=== PATIENT | female | born 1955 | race African-American/Black ===

== ENCOUNTER 2018-03-03 14:29 | Inpatient (IN) ==
--- NOTE | 2018-03-03 14:44 | Emergency Department Note ---
Disposition Clinical Impression: Cellulitis of foot, right Disposition: Admitted As Inpatient Condition: Undetermined Extremity Problem HPI - General Chief complaint: ED Extremity Problem,Nontraumatic Stated complaint: spider bite on toe Time Seen by Provider: 03/03/18 14:35 - History of Present Illness Pain Scale: 10 - Related Data Home Medications Medication Instructions Recorded Confirmed Albuterol Sulfate [Ventolin Hfa] 2 puff IH Q4H PRN 07/22/17 03/03/18 Amlodipine Besylate 10 mg PO DAILY 07/22/17 03/03/18 Aspirin 81 mg PO DAILY 07/22/17 03/03/18 Clopidogrel [Plavix] 75 mg PO DAILY 07/22/17 03/03/18 Gabapentin [Neurontin] 300 mg PO TID 07/22/17 03/03/18 Insulin ASPART [Novolog Flexpen] 5 - 10 unit SQ TID 07/22/17 03/03/18 Insulin Glargine,Hum.rec.anlog 45 unit SQ HS 07/22/17 03/03/18 [Lantus Solostar] Lisinopril [Zestril] 40 mg PO DAILY 07/22/17 03/03/18 Metformin HCl [Glucophage] 1,000 mg PO BID 07/22/17 03/03/18 Metoprolol [Lopressor] 100 mg PO BID 07/22/17 03/03/18 Omeprazole [PriLOSEC] 20 mg TD DAILY 07/22/17 03/03/18 PARoxetine HCl [Paroxetine HCl] 40 mg PO DAILY 07/22/17 03/03/18 Rosuvastatin [Crestor] 20 mg PO HS 07/22/17 03/03/18 Previous Rx's Medication Instructions Recorded Ibuprofen [Motrin] 600 mg PO Q8HR #20 tab 07/22/17 Allergies Allergy/AdvReac Type Severity Reaction Status Date / Time codeine AdvReac Nausea Verified 07/22/17 09:36 Sulfa (Sulfonamide AdvReac Rash Verified 07/22/17 09:36 Antibiotics) Past Medical History - Past Medical History Medical history: Reports: asthma, CHF, diabetes, myocardial infarction, TIA Surgical history: Reports: cataract, hysterectomy Psychiatric history: Reports: no psych history - Social History Smoking Status: Never smoker Smokeless Tobacco Status: No Alcohol use: Reports: none Drug use: Reports: none Course Vital Signs Temperature 97.9 F 03/03/18 14:32 Pulse Rate 70 03/03/18 14:32 Respiratory Rate 18 03/03/18 14:32 Blood Pressure 150/82 03/03/18 14:32 O2 Sat by Pulse Oximetry 100 03/03/18 14:32 Temperature 97.9 F 03/03/18 19:15 Pulse Rate 73 03/03/18 19:15 Respiratory Rate 15 03/03/18 19:15 Blood Pressure 187/83 03/03/18 19:15 O2 Sat by Pulse Oximetry 97 03/03/18 19:15 Oxygen Delivery Oxygen Delivery Room Air Extremity Problem, Nontraumati - Lab Data Result diagrams: 03/03/18 15:43 03/03/18 15:43 Lab Results 03/03/18 03/03/18 03/03/18 Range/Units 15:43 15:43 15:43 WBC 8.0 (4.3-11.1) K/mcL RBC 4.32 (3.82-4.97) M/mcL Hgb 13.4 (11.5-15.4) g/dL Hct 40.4 (35.3-44.9) % MCV 93.5 (83.0-100.0) fL MCH 31.0 (28.0-33.3) pg MCHC 33.2 (31.6-35.5) g/dL RDW 13.4 (11.5-14.5) % Plt Count 314 (140-400) K/mcL MPV 10.2 (9.4-12.4) fL Immature Gran % 0.4 (0-4) % Seg Neutrophils % 61.7 % Lymphocytes % 27.4 % Monocytes % 8.5 % Eosinophils % 1.4 % Basophils % 0.6 % Neutrophils # 4.9 (1.6-8.9) K/mcL Lymphocytes # 2.2 (0.6-4.6) K/mcL Monocytes # 0.7 (0.0-1.3) K/mcL Eosinophils # 0.1 (0.0-0.6) K/mcL Basophils # 0.1 (0.0-0.2) K/mcL ESR 29 H (0-15) mm/hr Sodium 138 (136-145) mEq/L Potassium 3.3 L (3.5-5.1) mEq/L Chloride 102 (98-107) mEq/L Carbon Dioxide 32 H (23-29) mEq/L BUN 5 L (8-23) mg/dL Creatinine 0.44 L (0.60-1.20) mg/dL Est GFR ( Amer) > 60 (> 60) Est GFR (Non-Af Amer) > 60 (> 60) BUN/Creatinine Ratio 11 (6-26) Glucose 191 H (70-105) mg/dL Calculated Osmolality 288 (280-300) Calcium 9.0 (8.6-10.3) mg/dL C-Reactive Protein < 5 (Less than 10) mg/L Attestation Statement - Attestation Attestation: Resident Attestation: I examined this patient and my medical decision making was reviewed with the Resident Physician. I agree with the documented findings, disposition and treatment plan as described except to the extent set forth below. We independently had [id number] contact with the patient. Patient presents today for evaluation of toe inflammation and swelling with associated tenderness. Symptoms started after she went to put on her shoe and felt something sharp. Patient states she checked her shoe but nothing was there. Concern for spider bite. Has been on outpatient antibiotics but has not been getting better. Pain and swelling worsening. Concern as she is a insulin dependent diabetic. Patient has ulceration to the top of her right great toe as well as generalized inflammation to the toe itself. There is a small and point lesion to the tip of the cell which is also concerning for possible injury. Cap refill is less than 3 seconds. Patient does have significant tenderness with manipulation of the toe. The patient will undergo further workup for cellulitis versus osteomyelitis. Patient will receive antibiotics and be admitted to the hospitalist service for further evaluation. Please see resident note for further details and disposition.
[2018-03-03] MEDS ORDERED: Piperacillin/Tazobactam 3.375 GM in Water for inj. (sterile) 20 ML 20 ML IVP ONE (14:59)
--- NOTE | 2018-03-03 15:05 | Emergency Department Note ---
Disposition Clinical Impression: Cellulitis of foot, right Disposition: Admitted As Inpatient Condition: Undetermined Referrals: NONE,PCP [Primary Care Provider] - Forms: ED Satisfaction Letter Time of Disposition: 16:03 Extremity Problem HPI - General Chief complaint: ED Extremity Problem,Nontraumatic Stated complaint: spider bite on toe Time Seen by Provider: 03/03/18 14:35 Source: patient Mode of arrival: ambulatory Limitations: no limitations Nursing Notes Reviewed: Yes Vital Signs Reviewed: Yes - History of Present Illness HPI Narrative: 63-year-old female poorly controlled diabetic arrives to the emergency department with complaint of ulceration and swelling and erythema of the right great toe over the right foot. Patient states that she was bit by a spider roughly 1.5 weeks ago and was seen at [facility] for cellulitis. She was started on antibiotics that she thinks was either clindamycin or cephalexin. The patient is been taking like she is posttussive but states that she has continued to express worsening symptoms. The patient has burning sensation and erythema of her right great toe. She has some purulent discharge from it as well. She denies any other complaints going fevers, chills at this time. Pain Scale: 10 - Related Data Home Medications Medication Instructions Recorded Confirmed Albuterol Sulfate [Ventolin Hfa] 2 puff IH Q4H PRN 07/22/17 03/03/18 Amlodipine Besylate 10 mg PO DAILY 07/22/17 03/03/18 Aspirin 81 mg PO DAILY 07/22/17 03/03/18 Clopidogrel [Plavix] 75 mg PO DAILY 07/22/17 03/03/18 Gabapentin [Neurontin] 300 mg PO TID 07/22/17 03/03/18 Insulin ASPART [Novolog Flexpen] 5 - 10 unit SQ TID 07/22/17 03/03/18 Insulin Glargine,Hum.rec.anlog 45 unit SQ HS 07/22/17 03/03/18 [Lantus Solostar] Lisinopril [Zestril] 40 mg PO DAILY 07/22/17 03/03/18 Metformin HCl [Glucophage] 1,000 mg PO BID 07/22/17 03/03/18 Metoprolol [Lopressor] 100 mg PO BID 07/22/17 03/03/18 Omeprazole [PriLOSEC] 20 mg TD DAILY 07/22/17 03/03/18 PARoxetine HCl [Paroxetine HCl] 40 mg PO DAILY 07/22/17 03/03/18 Rosuvastatin [Crestor] 20 mg PO HS 07/22/17 03/03/18 Previous Rx's Medication Instructions Recorded Ibuprofen [Motrin] 600 mg PO Q8HR #20 tab 07/22/17 Allergies Allergy/AdvReac Type Severity Reaction Status Date / Time codeine AdvReac Nausea Verified 07/22/17 09:36 Sulfa (Sulfonamide AdvReac Rash Verified 07/22/17 09:36 Antibiotics) All systems ED: reviewed and negative except as stated. Constitutional: Denies: fever, chills, weakness ENT ED: Denies: congestion Cardiovascular: Denies: chest pain Respiratory: Denies: dyspnea Gastrointestinal: Denies: abdominal pain, nausea Genitourinary: Denies: urgency, dysuria Musculoskeletal: Reports: joint swelling, arthralgia, myalgia Integumentary: Reports: lesions Neurological: Reports: numbness (baseline). Denies: headache Past Medical History - Past Medical History Attestation: Yes The following information was validated with the patient. Source: patient, old records reviewed Medical history: Reports: asthma, CHF, diabetes, myocardial infarction, TIA Surgical history: Reports: cataract, hysterectomy Psychiatric history: Reports: no psych history - Social History Smoking Status: Never smoker Smokeless Tobacco Status: No Alcohol use: Reports: none Drug use: Reports: none Physical Exam - General Limitations: no limitations General appearance: alert, in no apparent distress - Head Head exam: atraumatic, normocephalic, normal inspection - Eye Eye exam: Present: normal appearance, PERRL, EOMI - ENT ENT exam: normal exam, normal oropharynx, mucous membranes moist - Neck Neck exam: Present: normal inspection, full ROM, trachea midline - Chest Chest inspection: Present: normal inspection, symmetric chest wall rise - Respiratory Respiratory exam: Absent: respiratory distress - Cardiovascular Cardiovascular exam: Present: regular rate - Extremities Exam Extremities exam: Present: tenderness, joint swelling, other (Patient with erythema and ulceration to right great toe. Purulent discharge noted around the toenail right great toe. Capillary refill intact. Sensation reduced secondary to baseline neuropathy of bilateral feet. Mild tenderness on palpation. Full range of motion otherwise.) Course Vital Signs Temperature 97.9 F 03/03/18 14:32 Pulse Rate 70 09/28/18 14:32 Respiratory Rate 18 03/03/18 14:32 Blood Pressure 150/82 03/03/18 14:32 O2 Sat by Pulse Oximetry 100 03/03/18 14:32 Temperature 97.9 F 03/03/18 15:23 Pulse Rate 70 03/03/18 15:23 Respiratory Rate 18 03/03/18 15:23 Blood Pressure 150/82 03/03/18 15:23 O2 Sat by Pulse Oximetry 100 03/03/18 15:23 Oxygen Delivery Oxygen Delivery Room Air Extremity Problem, Nontraumati - MDM Narrative Medical decision making narrative: Patient's x-ray demonstrates no signs of osteomyelitis. Lab work obtained. The patient was started on IV vancomycin and Zosyn. The patient will be admitted to the hospitalist given the failed outpatient therapy. She was accepted by Dr. Cordon. Patient was made aware and agrees to plan. No further questions or concerns noted at this time. Patient is otherwise resting comfortably in the room. - Radiology Data Radiology results reviewed: Yes I reviewed the patient's radiology results. Foot X-Ray 03/03/18 14:59 IMPRESSION: 1. No acute osseous abnormality. 2. No radiographic evidence for osteomyelitis. 3. Osteopenia. 4. [id number] osteoarthritis. D/ / Biju Louis MD / Biju Louis MD Interpreting Provider: Biju Louis MD
[2018-03-03 15:58] LABS: Basophils # 0.1 K/mcL (0.0-0.2); Basophils % 0.6 %; Eosinophils # 0.1 K/mcL (0.0-0.6); Eosinophils % 1.4 %; Hematocrit 40.4 % (35.3-44.9); Hemoglobin 13.4 g/dL (11.5-15.4); Immature Granulocytes % 0.4 % (0-4); Lymphocytes # 2.2 K/mcL (0.6-4.6); Lymphocytes % 27.4 %; Mean Corpuscular HGB Conc 33.2 g/dL (31.6-35.5); Mean Corpuscular Volume 93.5 fL (83.0-100.0); Mean Platelet Volume 10.2 fL (9.4-12.4); Monocytes # 0.7 K/mcL (0.0-1.3); Monocytes % 8.5 %; Neutrophils # 4.9 K/mcL (1.6-8.9); Platelet Count 314 K/mcL (140-400); Red Blood Count 4.32 M/mcL (3.82-4.97); Red Cell Distribution Width 13.4 % (11.5-14.5); Segmented Neutrophils % 61.7 %
[2018-03-03] MEDS ORDERED: *HR* FentaNYL (PF) 100 MCG/2 ML VIAL IVP ONE (16:12)
[2018-03-03 16:20] LABS: BUN/Creatinine Ratio 11 (6-26); Blood Urea Nitrogen 5 mg/dL (8-23); C-Reactive Protein < 5 mg/L (Less than 10); Carbon Dioxide 32 mEq/L (23-29); Chloride 102 mEq/L (98-107); Glucose 191 mg/dL (70-105); Osmolality,Calculated 288 (280-300); Potassium 3.3 mEq/L (3.5-5.1); Sodium 138 mEq/L (136-145); eGFR For Non-African Americans > 60 (> 60)
[2018-03-03] MEDS ORDERED: Naloxone 0.4 MG/ML INJ IVP PRN (16:28)
[2018-03-03] MEDS ORDERED: Acetaminophen 325 MG TABLET PO PRN (16:28)
[2018-03-03] MEDS ORDERED: Ondansetron 4 MG/2 ML VIAL IVP PRN (16:32)
--- NOTE | 2018-03-03 16:35 | Internal Med History&Physical ---
Date of Encounter: 03/03/18 Time of Encounter: 16:57 Internal Medicine - H&P: HPI History of present illness: 63-year-old female with history of poorly controlled diabetes, hypertension, CHF , and [place] presented to the emergency department for worsening right great toe infection. Symptoms started one week ago after putting her shoe on she felt a sharp pain. She believes it was a spider bite that caused this, but did not see the spider. She was seen at [facility] and discharged with an antibiotic, which was either clindamycin or cephalexin but she is not sure. She took antibiotics as prescribed but symptoms are worsening and she noted redness from her toe began spreading to her foot with purulent discharge. She denies fevers/ chills, nausea/vomiting. Denies any recent trauma. Past Med Surg Social Fam HX - Past Medical History Medical history: asthma, CHF, diabetes, myocardial infarction, TIA Additional medical history: neuropathy Psychiatric history: no psych history - Past Surgical History Surgical History: cataract, hysterectomy Additional surgical history: tubal. exc mass under tongue - Social History Smoking Status: Never smoker Smokeless Tobacco Status: No Alcohol use: none Drug use: none Internal Medicine - H&P: Meds Albuterol Sulfate [Ventolin Hfa] 2 puff IH Q4H PRN 07/22/17 [History] Amlodipine Besylate 10 mg PO DAILY 07/22/17 [History] Aspirin 81 mg PO DAILY 07/22/17 [History] Clopidogrel [Plavix] 75 mg PO DAILY 07/22/17 [History] Gabapentin [Neurontin] 300 mg PO TID 07/22/17 [History] Ibuprofen [Motrin] 600 mg PO Q8HR #20 tab 07/22/17 [Rx] Insulin ASPART [Novolog Flexpen] 5 - 10 unit SQ TID 07/22/17 [History] Insulin Glargine,Hum.rec.anlog [Lantus Solostar] 45 unit SQ HS 07/22/17 [History ] Lisinopril [Zestril] 40 mg PO DAILY 07/22/17 [History] Metformin HCl [Glucophage] 1,000 mg PO BID 07/22/17 [History] Metoprolol [Lopressor] 100 mg PO BID 07/22/17 [History] Omeprazole [PriLOSEC] 20 mg TD DAILY 07/22/17 [History] PARoxetine HCl [Paroxetine HCl] 40 mg PO DAILY 07/22/17 [History] Rosuvastatin [Crestor] 20 mg PO HS 07/22/17 [History] 3 Allergy/AdvReac Type Severity Reaction Status Date / Time codeine AdvReac Nausea Verified 07/22/17 09:36 Sulfa (Sulfonamide AdvReac Rash Verified 07/22/17 09:36 Antibiotics) All Systems PM: A 10-system review of systems was performed and is negative for pertinent findings except as documented above in the HPI. - Constitutional Vitals: Temp Pulse Resp BP Pulse Ox 97.9 F 70 18 150/82 100 03/03/18 15:23 03/03/18 15:23 03/03/18 15:23 03/03/18 15:23 03/03/18 15:23 General appearance: Present: A&O X 3 Exam: NAD - Head Head exam: Present: atraumatic, normocephalic - Eye Eye exam: Present: PERRL, conjuntiva pink, sclera anicteric Pupils: Present: PERRL - Neck Neck exam general surgery: Present: supple, trachea midline. Absent: lymphadenopathy - Respiratory Respiratory exam: Present: CTAB. Absent: accessory muscle use, rales, rhonchi, wheezes - Cardiovascular Cardiovascular exam: Present: RRR, +S1, +S2. Absent: diastolic murmur, gallop, rubs, systolic murmur - GI/Abdominal GI/Abdominal exam: Present: normal bowel sounds, soft, no peritoneal signs. Absent: distended, tenderness - Extremities Exam Extremities exam: Present: full ROM, warm. Absent: calf tenderness, cyanotic, pedal edema, radial pulses palpable and symmetrical (faint tibial pulses bilaterally. Both feet are cool to touch.) Additional comments: Right great toe: erythema extending to the distal portion of right foot. Toe is slightly edematous. It is tender to touch. There is dried discharge at an ulcerated lesion on the medial side of the distal portion of the toe. There is also an area of ulceration of the nail fold. - Neurological Exam Neurological exam: Present: CN II-XII intact, oriented X3, no focal deficits. Absent: pronater drift, facial droop, speech deficit - Skin Skin exam: Present: dry, intact Internal Med - H&P Results - Labs CBC & Chem 7: 03/03/18 15:43 03/03/18 15:43 Labs: Short CBC 03/03/18 Range/Units 15:43 WBC 8.0 (4.3-11.1) K/mcL Hgb 13.4 (11.5-15.4) g/dL Hct 40.4 (35.3-44.9) % Plt Count 314 (140-400) K/mcL Neutrophils # 4.9 (1.6-8.9) K/mcL BMP 03/03/18 15:43 Sodium 138 Potassium 3.3 L Chloride 102 Carbon Dioxide 32 H BUN 5 L Creatinine 0.44 L Glucose 191 H Calcium 9.0 - Impressions ITS Impressions Foot X-Ray 03/03/18 14:59 IMPRESSION: 1. No acute osseous abnormality. 2. No radiographic evidence for osteomyelitis. 3. Osteopenia. 4. [id number] osteoarthritis. D/ / Biju Louis MD / Biju Louis MD Interpreting Provider: Biju Louis MD - Assessment and plan (1) Cellulitis of foot, right Current Visit: Yes Status: Acute Assessment and plan: Cellulitis with failed outpatient therapy. Patient suspects that this is due to spider bite. Clinically does not appear septic. 0 SIRS criteria on admission. ESR 29 CRP <5 Will consult Podiatry in AM as it is currently after hours. Continue Vancomycin, Zosyn. If MRSA screen negative, then DC vanc. Monitor renal function. (2) Diabetes Current Visit: Yes Status: Acute Assessment and plan: Hold metformin and home insulin. Will place on sliding scale and diabetic diet. A1C in AM. 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 Resume home medications. Qualifiers: Heart failure type: unspecified Heart failure chronicity: chronic Qualified Code(s): I50.9 - Heart failure, unspecified (4) Hypertension Current Visit: Yes Status: Acute Assessment and plan: Norvasc, metoprolol Qualifiers: Hypertension type: essential hypertension Qualified Code(s): I10 - Essential (primary) hypertension (5) Asthma Current Visit: Yes Status: Acute Assessment and plan: No acute issues, continue albuterol prn Qualifiers: Asthma severity: unspecified severity Asthma persistence: unspecified Asthma complication type: uncomplicated Qualified Code(s): J45.909 - Unspecified asthma, uncomplicated (6) History of [place] (myocardial infarction) Current Visit: Yes Status: Acute Assessment and plan: Aspirin, Plavix, statin (7) TIA (transient ischemic attack) Current Visit: Yes Status: Acute Assessment and plan: No acute issues, resume home medications. (8) DVT prophylaxis Current Visit: Yes Status: Acute Assessment and plan: Heparin SQ - Time Spent With Patient Total time spent is greater than 50% in coordination of care (as documented) at patient's floor/unit and/or counseling patient:
[2018-03-03] MEDS ORDERED: Famotidine 20 MG/2 ML VIAL IVP ONE (17:55)
[2018-03-03] MEDS: *HR* Heparin 5,000 UNIT/ML VIAL SQ SCH (18:55)
[2018-03-03] MEDS: Insulin LISPRO 300 UNITS/3 ML VIAL SQ SCH ×2 (18:56→21:54)
[2018-03-03] MEDS: Metoprolol 100 MG TABLET PO SCH (21:55)
[2018-03-03] MEDS: Gabapentin 300 MG CAPSULE PO SCH (21:55)
[2018-03-03] MEDS: *HR* OxyCODONE Immed Rel 5 MG TABLET PO PRN (22:05)
[2018-03-03] MEDS: Piperacillin/Tazobactam 3.375 GM in 0.9 % Sodium Chloride Mini Bag 100 ML IVPB SCH (23:53)
[2018-03-03] MEDS: traMADol 50 MG TABLET PO PRN (23:53)
[2018-03-04 03:48] LABS: BUN/Creatinine Ratio 13 (6-26); Blood Urea Nitrogen 7 mg/dL (8-23); Calcium 8.4 mg/dL (8.6-10.3); Carbon Dioxide 27 mEq/L (23-29); Chloride 102 mEq/L (98-107); Glucose 318 mg/dL (70-105); Osmolality,Calculated 288 (280-300); Potassium 4.1 mEq/L (3.5-5.1); Sodium 134 mEq/L (136-145); eGFR For Non-African Americans > 60 (> 60)
[2018-03-04] MEDS: *HR* OxyCODONE Immed Rel 5 MG TABLET PO PRN ×2 (04:04→13:09)
[2018-03-04] MEDS: *HR* Heparin 5,000 UNIT/ML VIAL SQ SCH ×2 (04:41→17:40)
[2018-03-04 07:02] LABS: Estimated Average Glucose 358 mg/dl; Hemoglobin A1C 14.1 %
[2018-03-04] MEDS: Aspirin 81 MG TAB.CHEW PO SCH (08:44)
[2018-03-04] MEDS: amLODIPine 5 MG TABLET PO SCH (08:44)
[2018-03-04] MEDS: Lisinopril 20 MG TABLET PO SCH (08:44)
[2018-03-04] MEDS: Gabapentin 300 MG CAPSULE PO SCH ×3 (08:45→21:57)
[2018-03-04] MEDS: traMADol 50 MG TABLET PO PRN ×3 (08:45→21:57)
[2018-03-04] MEDS: Piperacillin/Tazobactam 3.375 GM in 0.9 % Sodium Chloride Mini Bag 100 ML IVPB SCH ×2 (08:45→15:37)
[2018-03-04] MEDS: Metoprolol 100 MG TABLET PO SCH ×2 (08:48→21:57)
[2018-03-04] MEDS: Insulin LISPRO 300 UNITS/3 ML VIAL SQ SCH ×4 (08:48→21:23)
--- NOTE | 2018-03-04 10:52 | Internal Med Progress Note ---
Hospitalist Progress Note - Encounter Date of Encounter: 03/04/18 Time of Encounter: 13:20 - Subjective Interval History: No acute events. Toe pain still present, averaging 5/10 in severity. Denies fevers/chills. - Exam Vitals: Temp Pulse Resp BP Pulse Ox 98.0 F 69 14 137/81 98 03/04/18 10:32 03/04/18 10:32 03/04/18 10:32 03/04/18 10:32 03/04/18 10:32 Exam: Gen: NAD CVS: RRR Lungs: CTAB Extremities: Right great toe: erythema extending to the distal portion of right foot. Toe is slightly edematous. It is tender to touch. There is dried discharge at an ulcerated lesion on the medial side of the distal portion of the toe. There is also an area of ulceration of the nail fold. - Assessment and Plan (1) Cellulitis of foot, right Current Visit: Yes Status: Acute Assessment and Plan: Cellulitis with failed outpatient therapy. Patient suspects that this is due to spider bite. Clinically does not appear septic. 0 SIRS criteria on admission. ESR 29 CRP <5 Podiatry consulted, recommendations appreciated. Will benefit from continuing IV antibiotics. Continue Vancomycin, Zosyn. If MRSA screen negative, then DC vanc. Monitor renal function. (2) Diabetes Current Visit: Yes Status: Acute Assessment and Plan: Hold metformin and home insulin. Poorly controlled with A1C 14% (3) Heart failure Current Visit: Yes Status: Acute Assessment and Plan: No acute issues. Resume home medications. (4) Hypertension Current Visit: Yes Status: Acute Assessment and Plan: Norvasc, metoprolol (5) Asthma Current Visit: Yes Status: Acute Assessment and Plan: No acute issues, continue albuterol prn (6) History of [place] (myocardial infarction) Current Visit: Yes Status: Acute Assessment and Plan: Aspirin, Plavix, statin (7) TIA (transient ischemic attack) Current Visit: Yes Status: Acute Assessment and Plan: No acute issues, resume home medications. (8) DVT prophylaxis Current Visit: Yes Status: Acute Assessment and Plan: Heparin SQ - Time Spent with Patient Total time spent is greater than 50% in coordination of care (as documented) at patient's floor/unit and/or counseling patient: Internal Medicine: Result - Labs CBC & Chem 7: 03/03/18 15:43 03/04/18 01:53 Labs: [facility] 03/04/18 01:53 Sodium 134 L Potassium 4.1 Chloride 102 Carbon Dioxide 27 BUN 7 L Creatinine 0.56 L Glucose 318 H Calcium 8.4 L Consult Discharge Plan - Plan Referrals: NONE,PCP [Primary Care Provider] - (2) Diabetes Qualifiers: Diabetes mellitus type: type 2 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 Diabetes mellitus complication status: with unspecified complications Qualified Code(s): E11.8 - Type 2 diabetes mellitus with unspecified complications; Z79.4 - longterm (current) use of insulin (3) Heart failure Qualifiers: Heart failure type: unspecified Heart failure chronicity: chronic Qualified Code(s): I50.9 - Heart failure, unspecified (4) Hypertension Qualifiers: Hypertension type: essential hypertension Qualified Code(s): I10 - Essential (primary) hypertension (5) Asthma Qualifiers: Asthma severity: unspecified severity Asthma persistence: unspecified Asthma complication type: uncomplicated Qualified Code(s): J45.909 - Unspecified asthma, uncomplicated
[2018-03-05] MEDS: Piperacillin/Tazobactam 3.375 GM in 0.9 % Sodium Chloride Mini Bag 100 ML IVPB SCH ×3 (00:49→15:21)
[2018-03-05 05:17] LABS: Basophils # 0.1 K/mcL (0.0-0.2); Basophils % 1.1 %; Eosinophils # 0.1 K/mcL (0.0-0.6); Eosinophils % 2.1 %; Hemoglobin 13.8 g/dL (11.5-15.4); Immature Granulocytes % 0.3 % (0-4); Lymphocytes # 2.2 K/mcL (0.6-4.6); Lymphocytes % 35.4 %; Mean Corpuscular HGB Conc 32.1 g/dL (31.6-35.5); Mean Corpuscular Hemoglobin 30.5 pg (28.0-33.3); Mean Corpuscular Volume 94.9 fL (83.0-100.0); Mean Platelet Volume 10.8 fL (9.4-12.4); Monocytes # 0.4 K/mcL (0.0-1.3); Neutrophils # 3.3 K/mcL (1.6-8.9); Platelet Count 339 K/mcL (140-400); Red Blood Count 4.53 M/mcL (3.82-4.97); Red Cell Distribution Width 13.2 % (11.5-14.5); Segmented Neutrophils % 54.1 %
[2018-03-05 05:40] LABS: BUN/Creatinine Ratio 9 (6-26); Blood Urea Nitrogen 6 mg/dL (8-23); Calcium 9.1 mg/dL (8.6-10.3); Carbon Dioxide 31 mEq/L (23-29); Chloride 100 mEq/L (98-107); Glucose 365 mg/dL (70-105); Osmolality,Calculated 292 (280-300); Potassium 4.1 mEq/L (3.5-5.1); Sodium 135 mEq/L (136-145); eGFR For Non-African Americans > 60 (> 60)
[2018-03-05] MEDS: *HR* Heparin 5,000 UNIT/ML VIAL SQ SCH ×2 (06:10→18:13)
[2018-03-05] MEDS: *HR* OxyCODONE Immed Rel 5 MG TABLET PO PRN ×2 (06:10→15:27)
[2018-03-05] MEDS: Insulin LISPRO 300 UNITS/3 ML VIAL SQ SCH ×4 (07:33→22:15)
[2018-03-05] MEDS: Gabapentin 300 MG CAPSULE PO SCH ×3 (07:34→22:18)
[2018-03-05] MEDS: Lisinopril 20 MG TABLET PO SCH (07:35)
[2018-03-05] MEDS: Aspirin 81 MG TAB.CHEW PO SCH (07:35)
[2018-03-05] MEDS: Metoprolol 100 MG TABLET PO SCH ×2 (07:35→22:19)
[2018-03-05] MEDS: amLODIPine 5 MG TABLET PO SCH (07:35)
--- NOTE | 2018-03-05 09:09 | Internal Med Progress Note ---
Hospitalist Progress Note - Encounter Date of Encounter: 03/05/18 Time of Encounter: 09:21 - Subjective Interval History: No acute events. Denies fevers/chills. Toe pain still present, averaging 5/10 in severity. 03/05: states pain is getting slightly worse - Exam Vitals: Temp Pulse Resp BP Pulse Ox 97.4 F L 61 14 175/83 98 03/05/18 07:26 03/05/18 07:26 03/05/18 07:26 03/05/18 07:26 03/05/18 07:26 Exam: Gen: NAD CVS: RRR Lungs: CTAB Extremities: Right great toe: erythema extending to the distal portion of right foot. Toe is slightly edematous. It is tender to touch. There is dried discharge at an ulcerated lesion on the medial side of the distal portion of the toe. There is also an area of healing ulceration of the nail fold. There is an ulceration that is on the base of the toe. Relatively unchanged since yesterday. - Assessment and Plan (1) Cellulitis of foot, right Current Visit: Yes Status: Acute Assessment and Plan: Cellulitis with failed outpatient therapy. Patient suspects that this is due to spider bite. Clinically does not appear septic. 0 SIRS criteria on admission. ESR 29 CRP <5 Podiatry consulted, recommendations appreciated. Will benefit from continuing IV antibiotics. Continue Vancomycin, Zosyn. If MRSA screen negative, then DC vanc. Monitor renal function. States pain is not improving. On exam I can't appreciate much change in wound. Will obtain CT of foot. (2) Diabetes Current Visit: Yes Status: Acute Assessment and Plan: Hold metformin and home insulin. Poorly controlled with A1C 14% add 15 nits levemir (3) Heart failure Current Visit: Yes Status: Acute Assessment and Plan: No acute issues. Resume home medications. (4) Hypertension Current Visit: Yes Status: Acute Assessment and Plan: Norvasc, metoprolol Add prn IV hydralazine since SBP running 170s, might be pain related. (5) Asthma Current Visit: Yes Status: Acute Assessment and Plan: No acute issues, continue albuterol prn (6) History of [place] (myocardial infarction) Current Visit: Yes Status: Acute Assessment and Plan: Aspirin, Plavix, statin (7) TIA (transient ischemic attack) Current Visit: Yes Status: Acute Assessment and Plan: No acute issues, resume home medications. (8) DVT prophylaxis Current Visit: Yes Status: Acute Assessment and Plan: Heparin SQ - Time Spent with Patient Total time spent is greater than 50% in coordination of care (as documented) at patient's floor/unit and/or counseling patient: Internal Medicine: Result - Labs CBC & Chem 7: 03/05/18 04:27 03/05/18 04:27 Labs: Short CBC 03/05/18 Range/Units 04:27 WBC 6.1 (4.3-11.1) K/mcL Hgb 13.8 (11.5-15.4) g/dL Hct 43.0 (35.3-44.9) % Plt Count 339 (140-400) K/mcL Neutrophils # 3.3 (1.6-8.9) K/mcL BMP 03/05/18 04:27 Sodium 135 L Potassium 4.1 Chloride 100 Carbon Dioxide 31 H BUN 6 L Creatinine 0.65 Glucose 365 H Calcium 9.1 Consult Discharge Plan - Plan Referrals: NONE,PCP [Primary Care Provider] - (2) Diabetes Qualifiers: Diabetes mellitus type: type 2 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 Diabetes mellitus complication status: with unspecified complications Qualified Code(s): E11.8 - Type 2 diabetes mellitus with unspecified complications; Z79.4 - termite control servicer (current) use of insulin (3) Heart failure Qualifiers: Heart failure type: unspecified Heart failure chronicity: chronic Qualified Code(s): I50.9 - Heart failure, unspecified (4) Hypertension Qualifiers: Hypertension type: essential hypertension Qualified Code(s): I10 - Essential (primary) hypertension (5) Asthma Qualifiers: Asthma severity: unspecified severity Asthma persistence: unspecified Asthma complication type: uncomplicated Qualified Code(s): J45.909 - Unspecified asthma, uncomplicated
[2018-03-05] MEDS ORDERED: Isovue-370 500 ML INFUS..BTL IV ONE (09:11)
--- NOTE | 2018-03-05 11:34 | Podiatry Consult Note ---
Date of Encounter: 03/05/18 Time of Encounter: 11:32 Assessment and Plan (1) Cellulitis of foot, right Current visit: Yes Status: Acute (2) Ischemic ulcer diabetic foot Current visit: Yes Status: Acute Assessment: #1 ischemic ulcer dorsal aspect right great toe. Patient does relate what she believes to be a spider bite unlikely. Patient likely sustained an abrasion to the right great toe when she put her shoes on to go out to the mailbox approximately 2 weeks ago. Nonetheless clinically we observe ischemic ulcer on the dorsal aspect of the right great toe without signs of infection fluctuance cellulitis lymphangitis purulence #2 diabetes with vascular disease #3 patient is inveterate smoker. Plan: #1 agree with broad-spectrum antibiotics presently #2 is to local wound care #3 recommend vascular surgical consultation soon to address her advanced vascular disease #4 long discussion ensued about diabetes and use of tobacco present wound creates high risk for amputation History of Present Illness Chief complaint: Spider bite right great toe HPI: Ms. Sesay is a 63 year old female, admitted for right foot cellulitis. Patient states she believes she sustained a spider bite 2 weeks ago. She then presented to ED and is now admitted. Patient is a long history of diabetes with her last A1c in excess of 14.0. She is a [id number] history of tobacco abuse. She presently has no chest pain nausea vomiting fever or chills. Patient complains of tingling burning numbness from the midfoot distally to the toes of both feet. Past Med Surg Social Fam HX - Past Medical History Medical history: asthma, CHF, diabetes, myocardial infarction, TIA Additional medical history: neuropathy Psychiatric history: no psych history - Past Surgical History Surgical History: cataract, hysterectomy Additional surgical history: tubal. exc mass under tongue - Social History Smoking Status: Current every day smoker (40+ pack year history) Packs per day: 1 Smokeless Tobacco Status: No Alcohol use: none Drug use: none Medications and Allergies Albuterol Sulfate [Ventolin Hfa] 2 puff IH Q4H PRN 07/22/17 [History] Amlodipine Besylate 10 mg PO DAILY 07/22/17 [History] Aspirin 81 mg PO DAILY 07/22/17 [History] Clopidogrel [Plavix] 75 mg PO DAILY 07/22/17 [History] Gabapentin [Neurontin] 300 mg PO TID 07/22/17 [History] Ibuprofen [Motrin] 600 mg PO Q8HR #20 tab 07/22/17 [Rx] Insulin ASPART [Novolog Flexpen] 5 - 10 unit SQ TID 07/22/17 [History] Insulin Glargine,Hum.rec.anlog [Lantus Solostar] 45 unit SQ HS 07/22/17 [History ] Lisinopril [Zestril] 40 mg PO DAILY 07/22/17 [History] Metformin HCl [Glucophage] 1,000 mg PO BID 07/22/17 [History] Metoprolol [Lopressor] 100 mg PO BID 07/22/17 [History] Omeprazole [PriLOSEC] 20 mg TD DAILY 07/22/17 [History] PARoxetine HCl [Paroxetine HCl] 40 mg PO DAILY 07/22/17 [History] Rosuvastatin [Crestor] 20 mg PO HS 07/22/17 [History] 3 Allergy/AdvReac Type Severity Reaction Status Date / Time codeine AdvReac Nausea Verified 07/22/17 09:36 Sulfa (Sulfonamide AdvReac Rash Verified 07/22/17 09:36 Antibiotics) All Systems Reviewed: The remainder of the systems were reviewed and are negative, no chest pain nausea vomiting fever chills no bladder dysfunction. Patient does admit to tingling or numbness and burning both feet many year history Physical Exam - Constitutional Vitals: Temp Pulse Resp BP Pulse Ox 97.9 F 69 16 154/83 97 03/05/18 10:40 03/05/18 10:40 03/05/18 10:40 03/05/18 10:40 03/05/18 10:40 General appearance: average body habitus, cooperative - Expanded Lower Extremities Exam Foot/Toe exam: Present: erythema (We observe a dry eschar ulceration dorsal aspect of the right great toe overlying the IP joint measuring approximately 2 cm in length 2 cm in width unstageable we also observe a callus lesion on the plantar medial aspect of the IP joint of the right great toe as well without ulceration. We also observe a small mature blood blister and lateral aspect of the right great toe nail fold.) Neuro vascular tendon exam: Present: abnormal cap refill, extremity cold to touch, pulse deficit, sensory deficit Gait: Present: not tested/not observed - Skin Additional comments: Dry ulceration dorsal medial aspect right great toe - Vascular Capillary Refill: sluggish Lower Extremity Vascular: pulse deficit (Pedal pulses are not palpable DP or PT right foot or left foot. Skin school to touch. There is pallor on elevation and rubor on dependency. Capillary rebound time is sluggish. No edema.) - Ankle & Foot Alignment: other (We observe a hallux interphalangeus with lateral deviation level of the IP joint of the right great toe) Hammer toe location: toe 2 Results - Labs Result Diagrams: 03/05/18 04:27 03/05/18 04:27 Labs: Abnormal lab results ESR 29 mm/hr (0-15) H 03/03/18 15:43 Sodium 135 mEq/L (136-145) L 03/05/18 04:27 Carbon Dioxide 31 mEq/L (23-29) H 03/05/18 04:27 BUN 6 mg/dL (8-23) L 03/05/18 04:27 Glucose 365 mg/dL (70-105) H 03/05/18 04:27 POC Glucose 136 mg/dL (70-99) H 03/04/18 11:13 Hemoglobin A1c 14.1 % (-5.6) H 03/04/18 01:53 Vancomycin Trough 12 mcg/mL (5-10) H 03/05/18 04:27 H & H 03/05/18 Range/Units 04:27 Hgb 13.8 (11.5-15.4) g/dL Hct 43.0 (35.3-44.9) % All other labs normal. Plan cardiovascular noninvasive studies reveal significant lack of arterial perfusion, ANGIE of the right side 0.5, left side 0.6 - Diagnostic results Ankle/Foot x-ray: image reviewed Ankle/Foot CT: report reviewed, image reviewed Consult Discharge Plan - Plan Referrals: NONE,PCP [Primary Care Provider] -
[2018-03-05] MEDS: Insulin DETEMIR 100 UNIT/ML X5UNITS SQ SCH ×2 (11:54→22:18)
[2018-03-05] MEDS: traMADol 50 MG TABLET PO PRN (22:18)
[2018-03-06] MEDS: Piperacillin/Tazobactam 3.375 GM in 0.9 % Sodium Chloride Mini Bag 100 ML IVPB SCH ×3 (00:28→17:06)
[2018-03-06 06:10] LABS: Basophils % 0.3 %; Eosinophils # 0.1 K/mcL (0.0-0.6); Eosinophils % 1.2 %; Hematocrit 37.6 % (35.3-44.9); Hemoglobin 12.6 g/dL (11.5-15.4); Immature Granulocytes % 0.1 % (0-4); Lymphocytes # 1.2 K/mcL (0.6-4.6); Lymphocytes % 15.6 %; Mean Corpuscular HGB Conc 33.5 g/dL (31.6-35.5); Mean Corpuscular Hemoglobin 30.8 pg (28.0-33.3); Mean Corpuscular Volume 91.9 fL (83.0-100.0); Mean Platelet Volume 10.5 fL (9.4-12.4); Monocytes # 0.6 K/mcL (0.0-1.3); Monocytes % 7.7 %; Neutrophils # 5.8 K/mcL (1.6-8.9); Platelet Count 306 K/mcL (140-400); Red Blood Count 4.09 M/mcL (3.82-4.97); Segmented Neutrophils % 75.1 %
[2018-03-06 06:26] LABS: BUN/Creatinine Ratio 21 (6-26); Blood Urea Nitrogen 11 mg/dL (8-23); Calcium 9.1 mg/dL (8.6-10.3); Carbon Dioxide 26 mEq/L (23-29); Chloride 103 mEq/L (98-107); Glucose 257 mg/dL (70-105); Osmolality,Calculated 286 (280-300); Potassium 4.1 mEq/L (3.5-5.1); Sodium 134 mEq/L (136-145); eGFR For Non-African Americans > 60 (> 60)
[2018-03-06] MEDS: *HR* Heparin 5,000 UNIT/ML VIAL SQ SCH ×2 (06:29→17:05)
[2018-03-06] MEDS: amLODIPine 5 MG TABLET PO SCH (08:54)
[2018-03-06] MEDS: Lisinopril 20 MG TABLET PO SCH (08:54)
[2018-03-06] MEDS: Gabapentin 300 MG CAPSULE PO SCH ×3 (08:54→20:36)
[2018-03-06] MEDS: Aspirin 81 MG TAB.CHEW PO SCH (08:54)
[2018-03-06] MEDS: Metoprolol 100 MG TABLET PO SCH ×2 (08:54→20:36)
[2018-03-06] MEDS: Insulin LISPRO 300 UNITS/3 ML VIAL SQ SCH ×4 (08:55→20:37)
[2018-03-06] MEDS: traMADol 50 MG TABLET PO PRN ×2 (09:00→17:06)
--- NOTE | 2018-03-06 10:37 | Internal Med Progress Note ---
Hospitalist Progress Note - Encounter Date of Encounter: 03/06/18 Time of Encounter: 10:37 - Subjective Interval History: No acute events. Denies fevers/chills. Toe pain still present, she states she doesn't feel much improvement. - Exam Vitals: Temp Pulse Resp BP Pulse Ox 98.5 F 68 14 164/74 96 03/06/18 10:31 03/06/18 10:31 03/06/18 10:31 03/06/18 10:31 03/06/18 10:31 Exam: Gen: NAD CVS: RRR Lungs: CTAB Extremities: Right great toe: erythema extending to the distal portion of right foot. Toe is slightly edematous. It is tender to touch. There is dried discharge at an ulcerated lesion on the medial side of the distal portion of the toe. There is also an area of healing ulceration of the nail fold. There is an ulceration that is on the base of the toe. - Assessment and Plan (1) Cellulitis of foot, right Current Visit: Yes Status: Acute Assessment and Plan: Cellulitis with failed outpatient therapy. Patient suspects that this is due to spider bite. Clinically does not appear septic clinically, as well as he has 0 SIRS criteria on admission. Podiatry consulted, recommendations appreciated. CT foot was negative for abscess for fluid Currently on Vanc/Zosyn ID consulted (2) Peripheral vascular disease Current Visit: Yes Status: Acute Assessment and Plan: ANGIE showed right LE 0.5 and left LE 0.65. Vascular Surgery consulted. (3) Diabetes Current Visit: Yes Status: Acute Assessment and Plan: Hold metformin and home insulin. Poorly controlled with A1C 14% Continue with ISS and diabetic diet along with levemir, goal glucose <180 while admitted. (4) Heart failure Current Visit: Yes Status: Acute Assessment and Plan: No acute issues. Resume home medications. (5) Hypertension Current Visit: Yes Status: Acute Assessment and Plan: Norvasc, metoprolol Continue IV hydralazine prn (6) Asthma Current Visit: Yes Status: Acute Assessment and Plan: No acute issues, continue albuterol prn (7) History of [place] (myocardial infarction) Current Visit: Yes Status: Acute Assessment and Plan: Aspirin, Plavix, statin (8) DVT prophylaxis Current Visit: Yes Status: Acute Assessment and Plan: Heparin SQ - Time Spent with Patient Total time spent is greater than 50% in coordination of care (as documented) at patient's floor/unit and/or counseling patient: Internal Medicine: Result - Labs CBC & Chem 7: 03/06/18 05:32 03/06/18 05:32 Labs: Short CBC 03/06/18 Range/Units 05:32 WBC 7.7 (4.3-11.1) K/mcL Hgb 12.6 (11.5-15.4) g/dL Hct 37.6 (35.3-44.9) % Plt Count 306 (140-400) K/mcL Neutrophils # 5.8 (1.6-8.9) K/mcL BMP 03/06/18 05:32 Sodium 134 L Potassium 4.1 Chloride 103 Carbon Dioxide 26 BUN 11 Creatinine 0.52 L Glucose 257 H Calcium 9.1 - Impressions Impressions Foot CT 03/05/18 09:11 IMPRESSION: Soft tissue edema surrounding the 1st digit without drainable fluid collection or evidence for osteomyelitis. Please note that MRI is a more sensitive examination for subtle cases of osteomyelitis and can be considered as clinically indicated. D/ / Adalberto Duncan MD / Adalberto Duncan MD Interpreting Provider: Adalberto Duncan MD Consult Discharge Plan - Plan Referrals: NONE,PCP [Primary Care Provider] - (3) Diabetes Qualifiers: Diabetes mellitus type: type 2 Diabetes mellitus correction insulin use: with family services specialist use Diabetes mellitus complication status: with unspecified complications Qualified Code(s): E11.8 - Type 2 diabetes mellitus with unspecified complications; Z79.4 - supervisor communications and signals (current) use of insulin (4) Heart failure Qualifiers: Heart failure type: unspecified Heart failure chronicity: chronic Qualified Code(s): I50.9 - Heart failure, unspecified (5) Hypertension Qualifiers: Hypertension type: essential hypertension Qualified Code(s): I10 - Essential (primary) hypertension (6) Asthma Qualifiers: Asthma severity: unspecified severity Asthma persistence: unspecified Asthma complication type: uncomplicated Qualified Code(s): J45.909 - Unspecified asthma, uncomplicated
[2018-03-06] MEDS: *HR* OxyCODONE Immed Rel 5 MG TABLET PO PRN (11:47)
--- NOTE | 2018-03-06 14:38 | Infectious Disease Consult ---
Date of Encounter: 03/06/18 Time of Encounter: 14:32 Assessment and Plan (1) Cellulitis of foot, right Status: Acute Assessment and plan: Causative organism not clear Rash pneumo with it is due to an insect bite versus abrasion. Patient did not see the insect. Seems to be improving on vancomycin and Zosyn Concern for ischemic vascular disease CT reveals cellulitis but no abscess no osteomyelitis. No comments about septic arthritis. Evaluated by Dr. Lopez and his recommendations appreciated. Continue current antibiotics for now until vascular evaluate. Once patient is ready to discharge will probably switch her to combination of doxycycline and ciprofloxacin. Monitor labs and for drug toxicity Goal vancomycin trough around 10 We will discuss with podiatry to see if they have any concern for septic arthritis of the joint. If they do we might have to order an MRI. (2) Diabetes Status: Chronic Qualifiers: Diabetes mellitus type: type 2 Diabetes mellitus fpc insulin use: with intermediate project manager use Diabetes mellitus complication status: with unspecified complications Qualified Code(s): E11.8 - Type 2 diabetes mellitus with unspecified complications; Z79.4 - terminal system operator (current) use of insulin (3) Hypertension Status: Acute Qualifiers: Hypertension type: essential hypertension Qualified Code(s): I10 - Essential (primary) hypertension (4) History of AR (myocardial infarction) Status: Acute (5) Ischemic ulcer diabetic foot Status: Acute (6) Peripheral vascular disease Status: Chronic (7) Drug allergy, antibiotic Status: Acute Assessment and plan: Patient is allergic to sulfa Tells me she had a rash and hives Infectious Disease HPI - Data of Consult Patient: new to practice Consult date: 03/06/18 Requesting Physician: Montez Cordon DO Primary Care Provider: PCP NONE - Consult Narrative Reason for consult: cellulitis after an insect bite History of present illness: Ms. Sesay is a 63 year old female Patient is a 61-year-old woman with past medical history mentioned below who presented to [facility] on 03/03/2018 with right great toe swelling and erythema and pain, we are consulted today for a foot infection recommending antibiotics treatment. Patient 61-year-old woman with past medical history mentioned below including diabetes mellitus type 2 that is poorly controlled, hypertension, congestive heart failure and history of AR in the past presented to emergency department with right great toe swelling and erythema and pain. Apparently patient's tells me that 2 weeks prior to admission she was putting her shoes on and there was an insect in her shoe that bit her. She thinks it was a spider. Patient was seen at [facility] and discharged on antibiotics. Exact antibiotics not sure but I think it was either clindamycin or cephalexin. Patient continued to feel worse clinically and eventually came to the ED for evaluation. Since admission, patient has no sepsis. Had no SIRS criteria. Presenting the lesion she was 8000 with normal differential. ESR was mildly elevated at 29. Kidney function was within normal limit and her hemoglobin A1c was 14.1. CRP was less than 5. CT of the foot revealed soft tissue edema surrounding the first digit without drainable fluid collection or evidence for osteomyelitis. No mention of septic arthritis. Patient was seen by Dr. Lopez who feels that the ischemic ulcer on the dorsal aspect of the right great toe is probably due to an abrasion from the shoe and not from a bite. He recommended broad- spectrum antibiotics and vascular to evaluate. Currently patient on vancomycin and Zosyn. Patient denies any headache no chest pain or shortness of breath no nausea or vomiting patient did have diarrhea yesterday but no bowel movements today. Patient denies any urinary symptoms. Her toe per patient is significantly better. CC: Montez Cordon, DO Past Med Surg Social Fam HX - Past Medical History Medical history: asthma, CHF, diabetes, myocardial infarction, TIA Additional medical history: neuropathy Psychiatric history: no psych history - Past Surgical History Surgical History: cataract, hysterectomy Additional surgical history: tubal. exc mass under tongue - Social History Smoking Status: Current every day smoker (40+ pack year history) Packs per day: 1 Smokeless Tobacco Status: No Alcohol use: none Drug use: none Infectious Disease-CN:Meds Albuterol Sulfate [Ventolin Hfa] 2 puff IH Q4H PRN 07/22/17 [History] Amlodipine Besylate 10 mg PO DAILY 07/22/17 [History] Aspirin 81 mg PO DAILY 07/22/17 [History] Clopidogrel [Plavix] 75 mg PO DAILY 07/22/17 [History] Gabapentin [Neurontin] 300 mg PO TID 07/22/17 [History] Ibuprofen [Motrin] 600 mg PO Q8HR #20 tab 07/22/17 [Rx] Insulin ASPART [Novolog Flexpen] 5 - 10 unit SQ TID 07/22/17 [History] Insulin Glargine,Hum.rec.anlog [Lantus Solostar] 45 unit SQ HS 07/22/17 [History ] Lisinopril [Zestril] 40 mg PO DAILY 07/22/17 [History] Metformin HCl [Glucophage] 1,000 mg PO BID 07/22/17 [History] Metoprolol [Lopressor] 100 mg PO BID 07/22/17 [History] Omeprazole [PriLOSEC] 20 mg TD DAILY 07/22/17 [History] PARoxetine HCl [Paroxetine HCl] 40 mg PO DAILY 07/22/17 [History] Rosuvastatin [Crestor] 20 mg PO HS 07/22/17 [History] 3 Allergy/AdvReac Type Severity Reaction Status Date / Time codeine AdvReac Nausea Verified 07/22/17 09:36 Sulfa (Sulfonamide AdvReac Rash Verified 07/22/17 09:36 Antibiotics) Review of systems: 10 point review of systems done, negative other for what is mentioned in the history of present illness Exam - Constitutional Vitals: Temp Pulse Resp BP Pulse Ox 98.3 F 72 15 163/87 99 03/06/18 14:13 03/06/18 14:13 03/06/18 14:13 03/06/18 14:13 03/06/18 14:13 General appearance: no acute distress, no febrile - Head Head exam: Present: atraumatic, normocephalic - Eye Eye exam: Present: EOMI, PERRL, sclera anicteric - Respiratory Respiratory exam: Present: CTAB. Absent: wheezes - Cardiovascular Cardiovascular exam: Present: RRR, +S1, +S2 - GI/Abdominal GI/Abdominal exam: Present: normal bowel sounds, soft. Absent: tenderness - Extremities Exam Additional comments: Right great toe with erythema. There is no pain on passive movement of the joint. There is eschars on the dorsal aspect of the toe that is about 1 cm x 0.5 cm. - Neurological Exam Neurological exam: Present: alert, oriented X3 Infectious Disease CN: Results - Labs CBC & Chem 7: 03/06/18 05:32 03/06/18 05:32 Consult Discharge Plan - Plan Referrals: NONE,PCP [Primary Care Provider] -
--- NOTE | 2018-03-06 15:35 | Vascular/Endovasc Consult Note ---
Date of Encounter: 03/06/18 Time of Encounter: 15:00 Assessment and Plan (1) Diabetes Current Visit: Yes Status: Chronic Patient has been diabetic since 2005. She has been on long-term insulin. She has bilateral lower extremity peripheral neuropathy. Qualifiers: Diabetes mellitus type: type 2 Diabetes mellitus termite inspector insulin use: with snf use Diabetes mellitus complication status: with unspecified complications Qualified Code(s): E11.8 - Type 2 diabetes mellitus with unspecified complications; Z79.4 - residential (current) use of insulin (2) Ischemic ulcer diabetic foot Current Visit: Yes Status: Acute Patient has at least a one-week history of ulceration on the dorsum of the right first toe. The patient had speculated that this was due to a spider bite. However on exam this appears to be more traumatic and may be secondary to her diabetic neuropathy and long-standing lower extremity arterial disease. (3) Peripheral vascular disease Current Visit: Yes Status: Chronic Patient has significant lower extremity vascular disease on the basis of her history, physical examination, and noninvasive testing. Patient states that her ambulatory distance is no greater than approximately 30 yards. She has no palpable popliteal or pedal pulses bilaterally. Due to her multiple risk factors I suggested that she undergo angiography and probable endovascular intervention for the right lower extremity. This was explained in detail and all questions were answered. The patient agrees to proceed. We will make arrangements for the angiogram and probable right lower extremity endovascular intervention for Tuesday. - History of Present Illness Consult date: 03/06/18 Consult reason: Toe ulcer with PAD Chief complaint: Right first toe ulcer History of present illness: Ms. Sesay is a 63 year old female Who was admitted on Tuesday because of an ulceration on her right first toe. The patient thought that she was bitten by a spider but the wound appears to be more of an abrasion or traumatic. She has a history of poorly controlled diabetes and diabetic neuropathy of her lower extremities. As part of her evaluation she underwent noninvasive testing yesterday. The ankle brachial index was 0.5 on the right and 0.65 on the left. The patient also admits to significant bilateral lower extremity pain with ambulation. She states her ambulation distance is limited to approximately 30 yards. She has not had any previous vascular intervention in the lower extremities. She does note approximate 40-45 pound weight loss since July 2017. The patient has multiple vascular risk factors including poorly controlled diabetes, hypertension, previous coronary artery disease and myocardial infarction, and an active tobacco habit at 1 pack per day. Past Med Surg Social Fam HX - Past Medical History Medical history: asthma, CHF, diabetes, myocardial infarction, TIA Additional medical history: neuropathy Psychiatric history: no psych history - Past Surgical History Surgical History: cataract, hysterectomy, orthopedic, other (Right rotator cuff repair July 2017) Additional surgical history: tubal. exc mass under tongue - Social History Smoking Status: Current every day smoker (40+ pack year history) Packs per day: 1 Smokeless Tobacco Status: No Alcohol use: none Drug use: none Medications and Allergies Albuterol Sulfate [Ventolin Hfa] 2 puff IH Q4H PRN 07/22/17 [History] Amlodipine Besylate 10 mg PO DAILY 07/22/17 [History] Aspirin 81 mg PO DAILY 07/22/17 [History] Clopidogrel [Plavix] 75 mg PO DAILY 07/22/17 [History] Gabapentin [Neurontin] 300 mg PO TID 07/22/17 [History] Ibuprofen [Motrin] 600 mg PO Q8HR #20 tab 07/22/17 [Rx] Insulin ASPART [Novolog Flexpen] 5 - 10 unit SQ TID 07/22/17 [History] Insulin Glargine,Hum.rec.anlog [Lantus Solostar] 45 unit SQ HS 07/22/17 [History ] Lisinopril [Zestril] 40 mg PO DAILY 07/22/17 [History] Metformin HCl [Glucophage] 1,000 mg PO BID 07/22/17 [History] Metoprolol [Lopressor] 100 mg PO BID 07/22/17 [History] Omeprazole [PriLOSEC] 20 mg TD DAILY 07/22/17 [History] PARoxetine HCl [Paroxetine HCl] 40 mg PO DAILY 07/22/17 [History] Rosuvastatin [Crestor] 20 mg PO HS 07/22/17 [History] 3 Allergy/AdvReac Type Severity Reaction Status Date / Time codeine AdvReac Nausea Verified 07/22/17 09:36 Sulfa (Sulfonamide AdvReac Rash Verified 07/22/17 09:36 Antibiotics) All Systems Review: The remainder of the systems were reviewed and are negative Exam Vital Signs, Last 4 Hours Temp Pulse Resp BP Pulse Ox 03/06/18 14:13 98.3 F 72 15 163/87 99 General: Present: Conversant, No Apparent Distress HEENT: Present: Atraumatic, Normocephaly, Trachea midline, Pupils equal Neck: Absent: JVD, Left Carotid bruit, Right Carotid bruit, Midline deformity, Tracheal deviation Cardiac: Present: Reg Rate and Rhythm, Normal S1 and S2, No Murmur. Absent: Irregular Rhythm Lungs: Present: Normal Breath Sounds, No Wheeze, Rales, Rhonchi Neuro: Present: Alert and responsive, No focal deficits noted, Cranial nerves grossly intact Abdomen: Present: Soft, Non-tender, Other (No abdominal bruits). Absent: Masses Vascular: Present: Normal capillary refill, Pulse, absent (No palpable popliteal or pedal pulses bilaterally), Pulse, normal (Bilateral palpable femoral pulses without femoral bruits), Color/Temperature (Patient has symmetric temperature to her feet which are warm.). Absent: Cyanosis, Edema Skin: Present: Wound/ulcer(s) (Patient has a superficial abrasion appearing wound on the dorsum of the right first toe. This wound measures approximately 1 x 1 cm.) Consult Discharge Plan - Plan Referrals: NONE,PCP [Primary Care Provider] -
[2018-03-06] MEDS: Nicotine 14 MG PATCH.TD24 TD SCH (18:08)
[2018-03-06] MEDS: Insulin DETEMIR 100 UNIT/ML X5UNITS SQ SCH (20:37)
[2018-03-07] MEDS: Piperacillin/Tazobactam 3.375 GM in 0.9 % Sodium Chloride Mini Bag 100 ML IVPB SCH ×4 (00:36→23:58)
[2018-03-07] MEDS: *HR* OxyCODONE Immed Rel 5 MG TABLET PO PRN ×2 (00:40→17:44)
[2018-03-07 05:51] LABS: BUN/Creatinine Ratio 13 (6-26); Blood Urea Nitrogen 8 mg/dL (8-23); Calcium 9.3 mg/dL (8.6-10.3); Carbon Dioxide 27 mEq/L (23-29); Chloride 105 mEq/L (98-107); Glucose 246 mg/dL (70-105); Osmolality,Calculated 291 (280-300); Potassium 3.8 mEq/L (3.5-5.1); Sodium 137 mEq/L (136-145); eGFR For Non-African Americans > 60 (> 60)
[2018-03-07] MEDS: *HR* Heparin 5,000 UNIT/ML VIAL SQ SCH ×2 (06:29→17:41)
[2018-03-07] MEDS: traMADol 50 MG TABLET PO PRN (06:34)
[2018-03-07] MEDS: Gabapentin 300 MG CAPSULE PO SCH ×3 (07:51→21:52)
[2018-03-07] MEDS: Metoprolol 100 MG TABLET PO SCH ×2 (07:51→21:52)
[2018-03-07] MEDS: Lisinopril 20 MG TABLET PO SCH (07:52)
[2018-03-07] MEDS: amLODIPine 5 MG TABLET PO SCH (07:52)
[2018-03-07] MEDS: Insulin LISPRO 300 UNITS/3 ML VIAL SQ SCH ×4 (07:53→21:53)
[2018-03-07] MEDS: Nicotine 14 MG PATCH.TD24 TD SCH (07:53)
[2018-03-07] MEDS: Aspirin 81 MG TAB.CHEW PO SCH (07:54)
--- NOTE | 2018-03-07 11:01 | Infectious Disease Progress No ---
Date of Encounter: 03/07/18 Time of Encounter: 10:59 - Assessment and Plan (1) Cellulitis of foot, right Status: Acute Location: Right foot. Causative organism: Unclear. Etiology unclear: insect bite vs. abrasion vs. other. Improved on IV antibiotics. CT scan of the right foot revealed cellulitis, but no abscess or osteomyelitis. ESR 29, CRP <5. Podiatry consulted. Wound care and activity restrictions per the Podiatry team. Continue Vancomycin IV. Pharmacy to dose. Goal trough ~15. Continue Zosyn 3.375 grams IV Q8H. Duration of treatment depends on the clinical picture, but likely a total of 14 days. Will likely be able to switch to PO doxycycline and Cipro when ready for discharge. Monitor renal function and for drug toxicity and dose-adjust antibiotics. (2) Peripheral vascular disease Status: Chronic Bilateral ANGIE studies consistent with moderate disease. Vascular surgery consulted. Recommends angiogram with possible intervention on Tuesday. (3) Diarrhea Status: Acute Patient reports 4-5 loose stools yesterday and two this morning. Check C. diff. Empiric C. diff precautions. Start Flagyl 500mg PO TID. If C. diff testing negative, can discontinue. Start probiotics. Qualifiers: Diarrhea type: unspecified type Qualified Code(s): R19.7 - Diarrhea, unspecified (4) Vaginal candidiasis Status: Acute Likely secondary to antibiotics. Give fluconazole 200mg PO x 1 dose now. Start probiotics as above. (5) Diabetes Status: Chronic Recommend aggressive glucose monitoring and control to promote wound healing and prevent re-infection. Management per the primary team. Qualifiers: Diabetes mellitus type: type 2 Diabetes mellitus terminal operator insulin use: with senior care use Diabetes mellitus complication status: with unspecified complications Qualified Code(s): E11.8 - Type 2 diabetes mellitus with unspecified complications; Z79.4 - [facility] (current) use of insulin (6) Hypertension Status: Acute Qualifiers: Hypertension type: essential hypertension Qualified Code(s): I10 - Essential (primary) hypertension (7) Drug allergy, antibiotic Status: Acute Patient is allergic to sulfa. Tells me she had a rash and hives. - Subjective Interval history: Patient seen and examined. No acute events noted overnight. Patient states her foot remains painful, but is improved. Denies any fevers or chills or rigors. Denies chest pain, shortness of breath, or cough. Denies nausea, vomiting, or constipation. Reports 4-5 loose stools yesterday and 2 this morning. Denies urinary complaints or abdominal pain. States her appetite is improved. Denies any oral thrush or new skin lesions. She does report some genital itching that she attributes to a vaginal yeast infection. Infect Dis PN-Objective Data - Labs CBC & Chem 7: 03/09/18 08:14 03/09/18 08:14 Labs: Laboratory Results - last 24 hr 03/04/18 03/04/18 03/06/18 16:09 21:03 11:31 Sodium Potassium Chloride Carbon Dioxide BUN Creatinine Est GFR ( Amer) Est GFR (Non-Af Amer) BUN/Creatinine Ratio Glucose POC Glucose 384 H 191 H 337 H Calculated Osmolality Calcium Triglycerides Cholesterol LDL Cholesterol, Calc VLDL Cholesterol, Calc HDL Cholesterol Cholesterol/HDL Ratio 03/06/18 03/07/18 03/07/18 17:11 04:41 04:41 Sodium 137 Potassium 3.8 Chloride 105 Carbon Dioxide 27 BUN 8 Creatinine 0.63 Est GFR ( Amer) > 60 Est GFR (Non-Af Amer) > 60 BUN/Creatinine Ratio 13 Glucose 246 H POC Glucose 304 H Calculated Osmolality 291 Calcium 9.3 Triglycerides 172 H Cholesterol 117 LDL Cholesterol, Calc 23 VLDL Cholesterol, Calc 34 H HDL Cholesterol 60 H Cholesterol/HDL Ratio 2.0 03/07/18 07:12 Sodium Potassium Chloride Carbon Dioxide BUN Creatinine Est GFR ( Amer) Est GFR (Non-Af Amer) BUN/Creatinine Ratio Glucose POC Glucose 197 H Calculated Osmolality Calcium Triglycerides Cholesterol LDL Cholesterol, Calc VLDL Cholesterol, Calc HDL Cholesterol Cholesterol/HDL Ratio Exam - Constitutional Vitals: Temp Pulse Resp BP Pulse Ox 98.5 F 66 16 133/90 94 03/07/18 07:18 03/07/18 07:18 03/07/18 07:18 03/07/18 07:18 03/07/18 07:18 General appearance: average body habitus, cooperative, no acute distress - Head Head exam: Present: atraumatic, normal inspection, normocephalic - Eye Eye exam: Present: EOMI, normal appearance, PERRL Pupils: Present: normal accommodation - ENT ENT exam: Present: mucous membranes moist - Neck Neck exam: Present: normal inspection - Respiratory Respiratory exam: Present: CTAB. Absent: rales, respiratory distress, rhonchi, wheezes - Cardiovascular Cardiovascular exam: Present: RRR, +S1, +S2 - GI/Abdominal GI/Abdominal exam: Present: normal bowel sounds, soft. Absent: distended, tenderness - Extremities Exam Extremities exam: Present: normal inspection, tenderness (right foot great toe) . Absent: joint swelling, pedal edema Additional comments: Right foot dressing C/D/I. - Neurological Exam Neurological exam: Present: alert, oriented X3, no focal deficits - Psychiatric Psychiatric exam: Present: normal affect, normal mood - Skin Skin exam: Present: dry, intact, normal color, warm Consult Discharge Plan - Plan Instructions: Peripheral Vascular Angioplasty (DC) Referrals: Dylon Kan [Resident] - 03/17/18 2:00 pm Hugo Roberts MD [Partnered Physician] - Prescriptions: Ciprofloxacin [Cipro] 500 mg PO BID #28 tablet Doxycycline 100 mg PO BID #24 capsule Nicotine Patch [Nicoderm] 14 mg TD DAILY #30 patch.[id number] - Attending Attestation I examined this patient and my medical decision-making was reviewed with the Resident Physician. I agree with the documented findings, disposition and treatment plan as described except to the extent set forth below.
[2018-03-07] MEDS ORDERED: Fluconazole 100 MG TABLET PO SCH (11:15)
[2018-03-07] MEDS: Lactobacillus 1 EACH CAP.SPRINK PO SCH (11:45)
--- NOTE | 2018-03-07 12:30 | Internal Med Progress Note ---
Hospitalist Progress Note - Encounter Date of Encounter: 03/07/18 Time of Encounter: 17:27 - Subjective Interval History: No acute events. Denies fevers/chills. States she feels improvement in pain. No complaints. - Exam Vitals: Temp Pulse Resp BP Pulse Ox 98.3 F 67 16 162/80 95 03/07/18 11:23 03/07/18 11:23 03/07/18 11:23 03/07/18 11:23 03/07/18 11:23 Exam: Gen: NAD CVS: RRR Lungs: CTAB Extremities: Right great toe: erythema extending to the distal portion of right foot. Toe is slightly edematous. It is tender to touch. There is dried discharge at an ulcerated lesion on the medial side of the distal portion of the toe. There is also an area of healing ulceration of the nail fold. - Assessment and Plan (1) Cellulitis of foot, right Current Visit: Yes Status: Acute Assessment and Plan: Cellulitis with failed outpatient therapy. Patient suspects that this is due to spider bite. Clinically does not appear septic clinically, as well as he has 0 SIRS criteria on admission. Podiatry consulted, recommendations appreciated. CT foot was negative for abscess for fluid Currently on Vanc/Zosyn ID consulted Plan to change abx to PO on discharge Angiography of lower extremities planned for tomorrow, possibly intervention. (2) Peripheral vascular disease Current Visit: Yes Status: Chronic Assessment and Plan: ANGIE showed right LE 0.5 and left LE 0.65. Vascular Surgery following, angiography is tomorrow. Continue aspirin and plavix, Continue Crestor (3) Diabetes Current Visit: Yes Status: Chronic Assessment and Plan: Hold metformin and home insulin. Poorly controlled with A1C 14% Continue with ISS and diabetic diet along with levemir, goal glucose <180 while admitted. (4) Heart failure Current Visit: Yes Status: Acute Assessment and Plan: No acute issues. Resume home medications. (5) Hypertension Current Visit: Yes Status: Acute Assessment and Plan: Norvasc, metoprolol Continue IV hydralazine prn (6) Asthma Current Visit: Yes Status: Acute Assessment and Plan: No acute issues, continue albuterol prn (7) History of [place] (myocardial infarction) Current Visit: Yes Status: Acute Assessment and Plan: Aspirin, Plavix, statin (8) Unintentional weight loss Current Visit: Yes Status: Acute Assessment and Plan: I discussed this with patient's primary care provider. Will review trend in weight over the past year. She denies any night sweats or hemoptysis, denies dysuria She does have significant smoking history and continues to smoke and this is concerning for cancer. Emmanuel had weight of 63 kg, and currently is 53 kg. Reviewed a mammogram done this year which was negative. Will consider chest x- ray, may need further workup as outpatient. (9) DVT prophylaxis Current Visit: Yes Status: Acute Assessment and Plan: Heparin SQ - Time Spent with Patient Total time spent is greater than 50% in coordination of care (as documented) at patient's floor/unit and/or counseling patient: Internal Medicine: Result - Labs CBC & Chem 7: 03/06/18 05:32 03/07/18 04:41 Labs: BMP 03/07/18 04:41 Sodium 137 Potassium 3.8 Chloride 105 Carbon Dioxide 27 BUN 8 Creatinine 0.63 Glucose 246 H Calcium 9.3 Consult Discharge Plan - Plan Referrals: NONE,PCP [Primary Care Provider] - (3) Diabetes Qualifiers: Diabetes mellitus type: type 2 Diabetes mellitus termite control service representative insulin use: with termite control service representative use Diabetes mellitus complication status: with unspecified complications Qualified Code(s): E11.8 - Type 2 diabetes mellitus with unspecified complications; Z79.4 - termite inspector (current) use of insulin (4) Heart failure Qualifiers: Heart failure type: unspecified Heart failure chronicity: chronic Qualified Code(s): I50.9 - Heart failure, unspecified (5) Hypertension Qualifiers: Hypertension type: essential hypertension Qualified Code(s): I10 - Essential (primary) hypertension (6) Asthma Qualifiers: Asthma severity: unspecified severity Asthma persistence: unspecified Asthma complication type: uncomplicated Qualified Code(s): J45.909 - Unspecified asthma, uncomplicated
--- NOTE | 2018-03-07 14:24 | Event Note ---
Date of Encounter: 03/07/18 Time of Encounter: 14:23 Patient has lower extremity vascular disease. She is scheduled for angiography tomorrow. All questions were answered. The patient wishes to proceed as recommended.
[2018-03-07] MEDS: metroNIDAZOLE 500 MG TABLET PO SCH ×2 (15:35→21:52)
[2018-03-07] MEDS: Insulin DETEMIR 100 UNIT/ML X5UNITS SQ SCH (21:52)
[2018-03-08] MEDS: *HR* OxyCODONE Immed Rel 5 MG TABLET PO PRN ×2 (04:01→16:50)
[2018-03-08 04:24] LABS: BUN/Creatinine Ratio 21 (6-26); Blood Urea Nitrogen 10 mg/dL (8-23); Calcium 9.2 mg/dL (8.6-10.3); Carbon Dioxide 25 mEq/L (23-29); Chloride 106 mEq/L (98-107); Glucose 228 mg/dL (70-105); Osmolality,Calculated 288 (280-300); Potassium 3.8 mEq/L (3.5-5.1); Sodium 136 mEq/L (136-145); eGFR For Non-African Americans > 60 (> 60)
[2018-03-08] MEDS: *HR* Heparin 5,000 UNIT/ML VIAL SQ SCH ×2 (06:23→17:42)
[2018-03-08] MEDS: Insulin LISPRO 300 UNITS/3 ML VIAL SQ SCH ×4 (08:22→21:57)
[2018-03-08] MEDS: Gabapentin 300 MG CAPSULE PO SCH ×3 (08:23→21:54)
[2018-03-08] MEDS: Lactobacillus 1 EACH CAP.SPRINK PO SCH (08:24)
[2018-03-08] MEDS: Nicotine 14 MG PATCH.TD24 TD SCH (08:24)
[2018-03-08] MEDS: Aspirin 81 MG TAB.CHEW PO SCH (08:24)
[2018-03-08] MEDS: Metoprolol 100 MG TABLET PO SCH ×2 (08:25→21:54)
[2018-03-08] MEDS: amLODIPine 5 MG TABLET PO SCH (08:25)
[2018-03-08] MEDS: Lisinopril 20 MG TABLET PO SCH (08:25)
[2018-03-08] MEDS: metroNIDAZOLE 500 MG TABLET PO SCH (08:26)
[2018-03-08] MEDS: Piperacillin/Tazobactam 3.375 GM in 0.9 % Sodium Chloride Mini Bag 100 ML IVPB SCH ×2 (08:27→16:21)
[2018-03-08] MEDS ORDERED: Heparin 1,000 UNITS/500 mL 500 ML ONE (09:54)
[2018-03-08] MEDS ORDERED: *HR* Heparin 10,000 UNIT/10 ML VIAL ONE (09:54)
[2018-03-08] MEDS ORDERED: Isovue-300 200 mL Infus..BTL IV ONE (09:55)
[2018-03-08] MEDS ORDERED: 0.9 % Sodium Chloride 1,000 ML ONE ×2 (09:55→10:04)
[2018-03-08] MEDS ORDERED: *HR* FentaNYL (PF) 100 MCG/2 ML VIAL ONE ×2 (09:57→12:06)
[2018-03-08] MEDS ORDERED: *HR* Midazolam HCl 2 MG/2 ML VIAL ONE (09:57)
--- NOTE | 2018-03-08 10:17 | Pre-Sedation Evaluation ---
Pre-sedation evaluation - Pre-sedation checklist Date of procedure: 03/08/18 Procedure: Peripheral angiogram with angioplasty Recent Vitals: Last Vital Signs Temp 98.4 F 03/08/18 07:16 Pulse 67 03/08/18 07:16 Resp 14 03/08/18 07:16 BP 146/74 03/08/18 07:16 Pulse Ox 98 03/08/18 07:16 H&P (including ROS) documented in medical record: Yes Previous reaction to sedatives/anesthetics: No Dietary Status: NPO after Midnight Dentition: dentures removed ASA Classification *see protocol: CLASS III-Severe systemic disease Plan of Care: Pt appropriate candidate for procedure/moderate/conscious sedation , Risks/benefits of procedure/sedation discussed w/ patient/family Cardiac Registry (Cardio Only) - Functional Capacity - Clincal Frailty Scale
[2018-03-08] MEDS ORDERED: Aminoglycoside Consult 1 EACH MC ONE (11:02)
--- NOTE | 2018-03-08 11:37 | Procedure Note ---
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
--- NOTE | 2018-03-08 12:52 | Internal Med Progress Note ---
Hospitalist Progress Note - Encounter Date of Encounter: 03/08/18 Time of Encounter: 16:36 - Subjective Interval History: No acute events. Denies fevers/chills. States she feels improvement in pain. No complaints. - Exam Vitals: Temp Pulse Resp BP Pulse Ox 98.4 F 67 14 146/74 98 03/08/18 07:16 03/08/18 07:16 03/08/18 07:16 03/08/18 07:16 03/08/18 07:16 Exam: Gen: NAD CVS: RRR Lungs: CTAB Extremities: Right great toe: erythema extending to the distal portion of right foot. Toe is slightly edematous. It is tender to touch. There is dried discharge at an ulcerated lesion on the medial side of the distal portion of the toe. There is also an area of healing ulceration of the nail fold. - Assessment and Plan (1) Cellulitis of foot, right Current Visit: Yes Status: Acute Assessment and Plan: Cellulitis with failed outpatient therapy. Patient suspects that this is due to spider bite. Clinically does not appear septic clinically, as well as he has 0 SIRS criteria on admission. Podiatry consulted, recommendations appreciated. CT foot was negative for abscess for fluid Currently on Vanc/Zosyn ID consulted Plan to change abx to PO on discharge Today with drug coated balloon angioplasty of right superficial femoral artery occlusion. Patient states she feels well after procedure. (2) Peripheral vascular disease Current Visit: Yes Status: Chronic Assessment and Plan: ANGIE showed right LE 0.5 and left LE 0.65. Continue aspirin and plavix, Continue Crestor S/P balloon angioplasty of right superficial femoral artery occlusion. (3) Diabetes Current Visit: Yes Status: Chronic Assessment and Plan: Hold metformin and home insulin. Poorly controlled with A1C 14% Continue with ISS and diabetic diet along with levemir, goal glucose <180 while admitted. (4) Heart failure Current Visit: Yes Status: Acute Assessment and Plan: No acute issues. Resume home medications. (5) Hypertension Current Visit: Yes Status: Acute Assessment and Plan: Norvasc, metoprolol Continue IV hydralazine prn (6) Asthma Current Visit: Yes Status: Acute Assessment and Plan: No acute issues, continue albuterol prn (7) History of [place] (myocardial infarction) Current Visit: Yes Status: Acute Assessment and Plan: Aspirin, Plavix, statin (8) Unintentional weight loss Current Visit: Yes Status: Acute Assessment and Plan: I discussed this with patient's primary care provider. Will review trend in weight over the past year. She denies any night sweats or hemoptysis, denies dysuria She does have significant smoking history and continues to smoke and this is concerning for cancer. Emmanuel had weight of 63 kg, and currently is 53 kg. Reviewed a mammogram done this year which was negative. Will consider chest x- ray, may need further workup as outpatient. (9) DVT prophylaxis Current Visit: Yes Status: Acute Assessment and Plan: Heparin SQ - Time Spent with Patient Total time spent is greater than 50% in coordination of care (as documented) at patient's floor/unit and/or counseling patient: Internal Medicine: Result - Labs CBC & Chem 7: 03/06/18 05:32 03/08/18 03:29 Labs: BMP 03/08/18 03:29 Sodium 136 Potassium 3.8 Chloride 106 Carbon Dioxide 25 BUN 10 Creatinine 0.48 L Glucose 228 H Calcium 9.2 Consult Discharge Plan - Plan Referrals: NONE,PCP [Primary Care Provider] - (3) Diabetes Qualifiers: Diabetes mellitus type: type 2 Diabetes mellitus detention insulin use: with detention use Diabetes mellitus complication status: with unspecified complications Qualified Code(s): E11.8 - Type 2 diabetes mellitus with unspecified complications; Z79.4 - computer terminal operator (current) use of insulin (4) Heart failure Qualifiers: Heart failure type: unspecified Heart failure chronicity: chronic Qualified Code(s): I50.9 - Heart failure, unspecified (5) Hypertension Qualifiers: Hypertension type: essential hypertension Qualified Code(s): I10 - Essential (primary) hypertension (6) Asthma Qualifiers: Asthma severity: unspecified severity Asthma persistence: unspecified Asthma complication type: uncomplicated Qualified Code(s): J45.909 - Unspecified asthma, uncomplicated
--- NOTE | 2018-03-08 15:31 | Invasive Diagnostic Lab Proc ---
Name: Martha Sesay Date of Study: 03/08/2018 Date: 1955 Ht: 150.0 in Medical Record#: [id number] Age: 63 Wt: 54 lb Gender: Female BSA: 1.48 Order #: [id number] BMI: 24 Physicians Performing MD: Hugo Roberts MD, FACS Referring MD: Gary Carbajal DO Referring MD: Tejas Brunner MD Staff Name Position Time In Meryl Romero RN Slot Editor Tejas Romano RT (R) Monitor Elena Romano RT (R) Indications Peripheral Vasc Disease Procedures Performed AORTOGRAPHY W/RUNOFF BILAT S&I FEM/POPL REVAS W/TLA Pre-Procedure Checklist Informed consent is complete signed and on chart. H&P is on chart. ID band is on and ID verified with patient. Patient NPO for procedure The procedure was described for the patient and questions were answered. Blood Pressure: 161/70 ECG is on chart. Rhythm: NSR Plan of Care Patient will tolerate the procedure without complications. Adequate level of comfort will be maintained. Hemodynamics will remain stable Patient will recover from procedure without complications. Respiratory function will be maintained. Cardiac rhythm will remain stable. Patient temperature will be maintained. Patient and/or family have verbalized understanding of the procedure. Patient Education Chief Complaint/Reason for Test: Peripheral angiogram Developmental Category: Adult (18-64 years) Learning Barriers: None Education Needs: Procedure Education Method: Verbal Information Taught: Peripheral angiogram Educational Evaluation: Able to repeat information Intravenous Access Time IV Size Location DC'd Fluid/Drip Rate Units RN 10:03 20g 1 /" Patent On Arrival Rt Arm 0.9NaCl 25 ml/hr Skylar Estrella RN Allergies Sulfa (Sulfonamide Antibiotics) codeine sulfa Vital Signs Time BP Systolic BP Diastolic HR O2 Sats ASA 10:03 AM 161 70 66 100 10:03 AM 10:18 AM 10:33 AM 10:48 AM 11:03 AM 10:54 AM 144 68 64 100 10:58 AM 133 72 62 100 11:02 AM 136 76 63 100 11:07 AM 132 73 62 100 11:12 AM 146 75 67 100 11:18 AM 140 72 62 100 11:23 AM 146 74 61 100 11:28 AM 147 73 69 100 11:33 AM 124 101 59 10:13 AM 161 70 66 97 10:18 AM 121 71 72 100 10:22 AM 122 76 64 100 10:27 AM 115 64 68 100 10:32 AM 116 61 72 99 10:37 AM 115 64 61 100 10:42 AM 122 64 62 100 10:47 AM 130 71 65 100 11:18 AM 11:40 AM 145 81 68 99 12:00 PM 142 72 64 98 12:15 PM 106 65 65 98 12:30 PM 102 64 66 96 12:47 PM 112 62 60 95 01:04 PM 120 71 63 95 01:20 PM 138 76 64 99 01:30 PM 118 68 67 98 01:45 PM 136 81 66 98 02:02 PM 137 74 64 98 02:45 PM 147 80 02:55 PM 118 90 03:14 PM 141 78 68 18 Procedure Medications Time Medication Dose Units Method Route 10:09 AM Oxygen 2 L/min nasal cannula 10:14 AM Versed 1 mg Intravenous 10:14 AM Fentanyl 50 mcg Intravenous 10:24 AM Lidocaine 2% 10 ml Subcutaneous 10:58 AM Heparin 5000 units Intravenous 11:10 AM Fentanyl 25 mcg Intravenous 11:34 AM Plavix 75 mg Orally 12:12 PM Fentanyl 50 mcg Intravenous ASA Classification: CLASS III- Severe systemic disease (i.e. prior AMI, diabetes with vascular complications, morbid obesity) Zuhair Score Preprocedure Postprocedure Activity 2- Moves 4 extremities sustained head lift Activity 2- Moves 4 extremities sustained head lift Circulation 2- SBP +/= 20 points of pre-anesthetic level Circulation 2- SBP +/= 20 points of pre-anesthetic level Consciousness 2- Awake and alert oriented x 3 Consciousness 2- Awake and alert oriented x 3 O2 Saturation 2- Able to maintain O2 satruation of 92% on room air O2 Saturation 2- Able to maintain O2 satruation of 92% on room air Respiratory 2- Able to deep breathe and cough well Respiratory 2- Able to deep breathe and cough well Total Score 10 Total Score 10 Contrast: Isovue 300- 150ml Contrast Amount: 83 ml Fluoro Dose: 222 mGy Activated Clotting Time Time Drawn ACT (sec) 11:31 AM 253 02:02 PM 175 Procedure Log Time Note Entered By 09:55 AM Skylar Estrella RN Position: Slot Editor Time in: 09:55 [email or web address] 09:55 AM Tejas Romano RT (R) Position: Monitor Time in: 09:55 [email or web address] 09:55 AM Elena Romano (R) Position: Time in: 09:55 [email or web address] 09:56 AM Patient charges- Angio tray pack, Pulse Oximetry and ACIST tubing and transducer [email or web address] 10:02 AM Pt arrived to canvas shop laborer 1 at 10:02 [email or web address] 10:03 AM Case delayed: No [email or web address] 10:03 AM Time: 10:03 Is patient comfortable and pain free?: Yes [email or web address] 10:03 AM Time: 10:03LOC: 5 = Fully awake and oriented or at pre-proc level [email or web address] 10:08 AM Physician arrived 10:08 [email or web address] 10:08 AM Tuan and leena completed [email or web address] 10:09 AM Sign in performed according to hospital policy. [email or web address] 10:09 AM Procedure start 10:09 [email or web address] 10:09 AM 10:09 Oxygen at 2 L/min per nasal cannula by Skylar Estrella RN [email or web address] 10:14 AM 10:14 Versed 1 mg Intravenous Given by Skylar Estrella RN [email or web address] 10:14 AM 10:14 Fentanyl 50 mcg Intravenous Given by Skylar Estrella RN [email or web address] 10:15 AM Hair removed from procedure site in procedure lab using clippers. Bilateral groin prepped with Chloraprep by Elena Romano (R), then patient was draped. Skin intact. [email or web address] 10:10 AM ASA Class CLASS III- Severe systemic disease (i.e. prior AMI, diabetes with vascular complications, morbid obesity) [email or web address] 10:18 AM Time: 10:03LOC: 4 = Oriented but drowsy [email or web address] 10:18 AM Time: 10:03 Is patient comfortable and pain free?: Yes [email or web address] 10:24 AM Time out perfomed [email or web address] 10:24 AM 10:24 10 ml Lidocaine 2% to left groin Subcutaneous Given By Hugo Roberts MD, FACS [email or web address] 10:27 AM Unsuccessful access attempt # 1 into the left Femoral artery. Manual pressure applied to achieve hemostasis.. [email or web address] 10:29 AM venous access wire advanced [email or web address] 10:30 AM Access obtained in the left femoral vein by percutaneous puncture. 5 Fr. 10 cm Terumo Mendon sheath placed in left femoral artery [email or web address] 10:33 AM Access obtained in the left femoral artery by percutaneous puncture. 5 Fr. 10 cm Terumo Mendon sheath placed in left femoral artery [email or web address] 10:33 AM Time: 10:18 Is patient comfortable and pain free?: Yes [email or web address] 10:33 AM Time: 10:18LOC: 4 = Oriented but drowsy [email or web address] 10:33 AM 0.035 145cm Bentson wire utilized to assist with catheter placement [email or web address] 10:33 AM 5Fr Short pigtail catheter inserted over the wire [email or web address] 10:33 AM venous sheath removed [email or web address] 10:40 AM Abdominal aorta angiography performed in AP contrast injected 10/20 mls. [email or web address] 10:41 AM Physician reviewing films [email or web address] 10:41 AM Setting up for stepping [email or web address] 10:46 AM Abdominal angiogram with runoff completed: 5 ml/sec for a total of 50 mls [email or web address] 10:46 AM Physician reviewing films [email or web address] 10:47 AM Catheter removed [email or web address] 10:47 AM 5Fr Omniflush catheter inserted over the wire [email or web address] 10:48 AM Time: 10:33 Is patient comfortable and pain free?: Yes [email or web address] 10:48 AM Time: 10:33LOC: 4 = Oriented but drowsy [email or web address] 10:49 AM Catheter removed [email or web address] 10:49 AM Inflation device [email or web address] 10:50 AM Sheath exchanged for a 6 Fr 45 cm Terumo Destination sheath inserted into left femoral artery [email or web address] 10:55 AM 0.035 Glidewire Angled 260cm guidewire advanced. [email or web address] 10:55 AM 5Fr 100cm Glidecath Angled-Taper guide catheter advanced [email or web address] 10:58 AM 10:58 Heparin 5000 units Intravenous by Skylar Estrella RN [email or web address] 11:01 AM 3 mm x 100 mm Sap Pp Consultant balloon catheter placed into right superficial femoral [email or web address] 11:02 AM Diagram Region: Lower Extremity Arteries Anatomical Region: LE-Art occlusion in Distal Right Superficial Femoral Intervention done: 1 (1=yes, 0=no) [email or web address] 11:03 AM Time: 10:48 Is patient comfortable and pain free?: Yes [email or web address] 11:03 AM Time: 10:48LOC: 4 = Oriented but drowsy [email or web address] 11:03 AM Balloon inflated @ 16 venus for 60 seconds [email or web address] 11:04 AM Balloon removed intact [email or web address] 11:07 AM 4 mm x 250 mm Medtronic drug coated balloon placed into right superficial femoral [id number] [email or web address] 11:09 AM Balloon inflated @ 11 venus for 180 seconds [email or web address] 11:10 AM 11:10 Fentanyl 25 mcg Intravenous Given by Skylar Estrella RN [email or web address] 11:14 AM Balloon removed intact [email or web address] 11:17 AM 4mm x 250mm medtronic drug coated balloon in Proximal SFA balloon reused. [email or web address] 11:18 AM Balloon inflated @ 11 venus for 120 seconds [email or web address] 11:18 AM Time: 11:03 Is patient comfortable and pain free?: Yes [email or web address] 11:18 AM Time: 11:03LOC: 4 = Oriented but drowsy [email or web address] 11:20 AM Balloon removed intact [email or web address] 11:24 AM Procedure completed at 11:24 [email or web address] 11:26 AM Sign Out completed: Radiation Dose 221.95 mGy Fluoro Time: 6.0 minutes. Isovue 300- 150ml contrast 83 ml given by Hugo Roberts MD, FACS. Complications: None. Confirmed administered medications:Yes [email or web address] 11:26 AM Isovue 300- 150ml,1 bottle(s) used. [email or web address] 11:26 AM Sheath left in place to be pulled on floor/holding areaV+Pad [email or web address] 11:26 AM Estimated Blood Loss: less than 20cc [email or web address] 11:26 AM Post Blood Pressure: 146/74 [email or web address] 11:26 AM Post EKG: NSR [email or web address] 11:26 AM Information taught: Peripheral angiogram [email or web address] 11:26 AM Education needs: Procedure, Plan of Care, and Disease Process [email or web address] 11:27 AM Learning barriers: Sedated [email or web address] 11:27 AM Education methods: Verbal [email or web address] 11:27 AM Education evaluation: Needs further instruction [email or web address] 11:27 AM Site status No bleeding/hematoma - Lt Groin as reported by Elena Romano RT (R) at 11:27 [email or web address] 11:27 AM Opsite applied [email or web address] 11:27 AM Delay to floor: Bed availability [email or web address] 11:27 AM Complications: None [email or web address] 11:27 AM Fluoro Time: 6.0 minutes [email or web address] 11:27 AM Isovue 300- 150ml contrast 83 ml given by Hugo Roberts MD, FACS [email or web address] 11:27 AM Radiation Dose 221.95 mGy [email or web address] 11:28 AM no family [email or web address] 11:29 AM Diagram Region: Lower Extremity Arteries Anatomical Region: LE-Art chiropractor assistant in Left Superficial Femoral Intervention done: 0 (1=yes, 0=no) [email or web address] 11:30 AM Diagram Region: Lower Extremity Arteries Anatomical Region: LE-Artocclusion in Left Ant. Tibial/Left Post. Tibial Intervention done: 0 (1=yes, 0=no) [email or web address] 11:31 AM Diagram Region: Lower Extremity Arteries Anatomical Region: LE-Artocclusion in Right Ant. Tibial/Right Post. Tibial Intervention done: 0 (1=yes, 0=no) [email or web address] 10:02 AM PVIStat 10:12 AM Vitals capture started with the following parameters, Patient=Adult, Interval=5 min, Initial Ldicazsu=383 mmHg, Deflation Rate=3 mmHg, Cuff placed on Right Arm 10:13 AM HR=66 bpm, MAXD=641/70 mmhg, SpO2=97.0 % 10:15 AM Recorded ECG: HR=65 Condition=Condition 1 10:18 AM HR=72 bpm, WUEP=334/71 mmhg, VzR4=181.0 %, Resp=14 B/min 10:20 AM Pressure channel 1 zeroed. 10:22 AM HR=64 bpm, KHTQ=906/76 mmhg, YtJ6=740.0 %, Resp=31 B/min 10:27 AM HR=68 bpm, LVEJ=515/64 mmhg, DzO4=714.0 %, Resp=34 B/min 10:32 AM HR=72 bpm, MHIR=038/61 mmhg, SpO2=99.0 %, Resp=9 B/min 10:37 AM HR=61 bpm, UIHY=492/64 mmhg, TxE9=992.0 %, Resp=14 B/min 10:42 AM HR=62 bpm, AQMG=788/64 mmhg, SeV1=679.0 %, Resp=9 B/min 10:47 AM HR=65 bpm, LHGD=785/71 mmhg, LfU8=413.0 %, Resp=8 B/min 10:54 AM HR=64 bpm, FLUC=876/68 mmhg, AfD5=528.0 %, Resp=29 B/min 10:58 AM HR=62 bpm, QSUL=978/72 mmhg, FwD9=668.0 %, Resp=13 B/min 11:02 AM HR=63 bpm, CRIE=113/76 mmhg, QhV8=867.0 %, Resp=7 B/min 11:07 AM HR=62 bpm, AQBK=390/73 mmhg, FkG1=866.0 %, Resp=9 B/min 11:12 AM HR=67 bpm, UJSK=544/75 mmhg, IzQ0=898.0 %, Resp=16 B/min 11:18 AM HR=62 bpm, TSOS=551/72 mmhg, XhJ6=695.0 %, Resp=15 B/min 11:23 AM HR=61 bpm, OOGG=381/74 mmhg, EhI7=069.0 %, Resp=8 B/min 11:28 AM HR=69 bpm, MFNY=978/73 mmhg, JeL8=771.0 %, Resp=32 B/min 11:33 AM HR=59 bpm, GUVF=223/101 mmhg, Resp=9 B/min 11:33 AM Vitals capture stopped. 11:33 AM Time: 11:18LOC: 4 = Oriented but drowsy [email or web address] 11:33 AM Time: 11:18 Is patient comfortable and pain free?: Yes [email or web address] 11:34 AM Report given to ziyad ORR. Pt taken to Holding room, Room # 3 11:33 [email or web address] 11:34 AM Time: 11:34 Plavix 75 mg Orally [facility] 11[facility] AM Pt taken to Holding room Room# 3 [email or web address] 11:36 AM 11:36 Post Pulses: Bilateral DP 1+. [email or web address] 11:37 AM 11:36 Post Pulses: Bilateral PT none. [email or web address] 11:37 AM Patient out of room 11:37 [email or web address] 11:47 AM Drink provided. Plavix post op given as per Dr. Roberts's order per Skylar Estrella RN. [email or web address] 12:12 PM 12:12 Fentanyl 50 mcg Intravenous Given by Ziyad Mcgrath RN 12:[address] roberts at bedside. patient c/o pain in legs 01/13. New order for Fentanyl 50 mcg IV x 1 now. [email or web address] 02:02 PM ACT drawn [email or web address] 02:05 PM ACT: 175 seconds 14:02 [email or web address] 02:45 PM Arterial sheath pulled using manual compression and V+Pad for 20 minutes by Meryl Romero RN [email or web address] 03:09 PM Site status No bleeding/hematoma - Lt Groin as reported by Meryl Romero RN at 15:13 [email or web address] 03:09 PM Opsite applied [email or web address] 03:24 PM Report given to Lorraine ORR. Pt taken to , Room # 22 15:23 [email or web address] 03:24 PM Complications: None [email or web address] 03:24 PM Patient out of room 15:24 kwitte Peripheral Anatomy Vessel Pathology Lesion Stenosis Aneurysm Diameter Thrombus Type Right superficial femoral artery Lesion 100 Left superficial femoral artery Lesion 100 Right anterior tibial artery Lesion 100 Right posterior tibial artery Lesion 100 Left anterior tibial artery Lesion 100 Left posterior tibial artery Lesion 100 Post Procedure Information Blood Pressure: 146/74 mmHg Rhythm: NSR Post procedure instructions given Site Checks Time Location Status Staff Sheath In? Note 11:27:00 AM Lt Groin No bleeding/hematoma Elena Romano RT (R) 03/08/2018 11:40:00 AM Lt Groin No bleeding/ No Hematoma Ziyad Mcgrath RN 03/08/2018 12:00:00 PM Lt Groin No bleeding/ No Hematoma Ziyad Mcgrath RN 03/08/2018 12:15:00 PM Lt Groin No bleeding/ No Hematoma Ziyad Mcgrath RN 03/08/2018 12:30:00 PM Lt Groin No bleeding/ No Hematoma Ziyad Mcgrath RN 03/08/2018 12:46:00 PM Lt Groin No bleeding/ No Hematoma Meryl Romero RN 03/08/2018 1:04:00 PM Lt Groin No bleeding/ No Hematoma Meryl Romero RN 03/08/2018 1:20:00 PM Lt Groin No bleeding/ No Hematoma Ziyad Mcgrath RN 03/08/2018 1:30:00 PM Lt Groin No bleeding/ No Hematoma Meryl Romero RN 03/08/2018 1:45:00 PM Lt Groin No bleeding/ No Hematoma Meryl Romero RN 03/08/2018 2:02:00 PM Lt Groin No bleeding/ No Hematoma Meryl Romero RN 3:13:00 PM Lt Groin No bleeding/hematoma Meryl Romero RN 03/08/2018 2:45:00 PM Lt Groin No bleeding/ No Hematoma Meryl Romero RN 03/08/2018 3:13:00 PM Lt Groin No bleeding/ No Hematoma Meryl Romero RN Pulses Time Site Pre Procedure Post Procedure Note 03/08/2018 10:03:00 AM Bilateral DP 1+ 03/08/2018 10:03:00 AM Bilateral radial 2+ 11:36:00 AM Bilateral DP 1+ 11:36:00 AM Bilateral PT None 03/08/2018 11:45:00 AM Bilateral DP 1+ 03/08/2018 1:20:00 PM Bilateral DP 1+ Updated by Ziyad Mcgrath RN on 03/08/2018 3:25:32 PM Ziyad Mcgrath RN electronically signed on 03/08/2018 3:25:59 PM with status of Final
--- NOTE | 2018-03-08 18:14 | Event Note ---
Date of Encounter: 03/08/18 Time of Encounter: 18:11 Patient is seen following successful right lower extremity balloon angioplasty of the superficial femoral artery back on 3A. The patient has no complaints. She notes that her right foot is feeling better and warmer and less painful. On physical exam the right foot is significantly warmer than prior to angiogram and angioplasty. The color is also significantly improved involving the plantar surface of her foot and her plantar surface of the toes. Capillary refill is now 2-3 seconds or less. From a vascular surgery perspective if the patient is stable in the morning she may be discharged at any time. Follow-up in vascular surgery clinic in 3 weeks Continue Plavix indefinitely Anticipate outpatient angiogram with left lower extremity intervention for left superficial femoral artery RN REGISTRY in near future once diabetes is under control.
[2018-03-08] MEDS ORDERED: Insulin DETEMIR 100 UNIT/ML X5UNITS SQ SCH (21:00)
[2018-03-08] MEDS: traMADol 50 MG TABLET PO PRN (22:02)
[2018-03-09] MEDS: Piperacillin/Tazobactam 3.375 GM in 0.9 % Sodium Chloride Mini Bag 100 ML IVPB SCH ×2 (00:13→09:09)
[2018-03-09] MEDS: *HR* OxyCODONE Immed Rel 5 MG TABLET PO PRN (04:55)
[2018-03-09] MEDS: *HR* Heparin 5,000 UNIT/ML VIAL SQ SCH (05:51)
[2018-03-09 08:39] LABS: Basophils % 0.2 %; Eosinophils # 0.2 K/mcL (0.0-0.6); Eosinophils % 1.7 %; Hematocrit 35.3 % (35.3-44.9); Hemoglobin 11.6 g/dL (11.5-15.4); Immature Granulocytes % 0.4 % (0-4); Lymphocytes # 1.4 K/mcL (0.6-4.6); Lymphocytes % 15.6 %; Mean Corpuscular HGB Conc 32.9 g/dL (31.6-35.5); Mean Corpuscular Hemoglobin 30.9 pg (28.0-33.3); Mean Corpuscular Volume 93.9 fL (83.0-100.0); Mean Platelet Volume 10.6 fL (9.4-12.4); Monocytes # 0.8 K/mcL (0.0-1.3); Monocytes % 8.8 %; Neutrophils # 6.5 K/mcL (1.6-8.9); Platelet Count 265 K/mcL (140-400); Red Blood Count 3.76 M/mcL (3.82-4.97); Red Cell Distribution Width 13.5 % (11.5-14.5); Segmented Neutrophils % 73.3 %
[2018-03-09 08:55] LABS: BUN/Creatinine Ratio 14 (6-26); Blood Urea Nitrogen 7 mg/dL (8-23); Calcium 9.4 mg/dL (8.6-10.3); Carbon Dioxide 27 mEq/L (23-29); Chloride 105 mEq/L (98-107); Glucose 104 mg/dL (70-105); Osmolality,Calculated 280 (280-300); Potassium 3.7 mEq/L (3.5-5.1); Sodium 136 mEq/L (136-145); eGFR For Non-African Americans > 60 (> 60)
[2018-03-09] MEDS: Aspirin 81 MG TAB.CHEW PO SCH (09:10)
[2018-03-09] MEDS: amLODIPine 5 MG TABLET PO SCH (09:11)
[2018-03-09] MEDS: Gabapentin 300 MG CAPSULE PO SCH (09:11)
[2018-03-09] MEDS: Lisinopril 20 MG TABLET PO SCH (09:11)
[2018-03-09] MEDS: Metoprolol 100 MG TABLET PO SCH (09:12)
[2018-03-09] MEDS: Nicotine 14 MG PATCH.TD24 TD SCH (09:12)
[2018-03-09] MEDS: Insulin LISPRO 300 UNITS/3 ML VIAL SQ SCH (09:13)
[2018-03-09] MEDS: Lactobacillus 1 EACH CAP.SPRINK PO SCH (09:19)
[2018-03-09] MEDS: traMADol 50 MG TABLET PO PRN (09:19)
--- NOTE | 2018-03-09 10:27 | Discharge Summary ---
- NOTES TO OUTPATIENT PROVIDER Notes to Outpatient Provider: - Follow-up with diabetes medication compliance. - Follow-up with reported weight loss history in a smoker. - Follow-up with compliance of antibiotics. Orders not resulted at time of discharge: Pending orders 03/06/18 15:31 CL Peripheral Angiography [CL] Routine 03/10/18 04:00 BMP [Basic Metabolic Panel] AM 0400 Complete Blood Count [HEME] AM 0400 03/11/18 04:00 BMP [Basic Metabolic Panel] AM 0400 Complete Blood Count [HEME] AM 0400 Date of Encounter: 03/09/18 Time of Encounter: 10:23 - Discharge Diagnosis (1) Cellulitis of foot, right Priority: Primary Status: Acute (2) Peripheral vascular disease Priority: Secondary Status: Chronic (3) Diabetes Priority: Secondary Status: Chronic Qualifiers: Diabetes mellitus type: type 2 Diabetes mellitus residential insulin use: with residential use Diabetes mellitus complication status: with unspecified complications Qualified Code(s): E11.8 - Type 2 diabetes mellitus with unspecified complications; Z79.4 - alf (current) use of insulin (4) Heart failure Priority: Secondary Status: Acute Qualifiers: Heart failure type: unspecified Heart failure chronicity: chronic Qualified Code(s): I50.9 - Heart failure, unspecified (5) Hypertension Priority: Secondary Status: Acute Qualifiers: Hypertension type: essential hypertension Qualified Code(s): I10 - Essential (primary) hypertension (6) Asthma Priority: Secondary Status: Acute Qualifiers: Asthma severity: unspecified severity Asthma persistence: unspecified Asthma complication type: uncomplicated Qualified Code(s): J45.909 - Unspecified asthma, uncomplicated (7) History of KS (myocardial infarction) Priority: Secondary Status: Acute (8) Unintentional weight loss Priority: Secondary Status: Acute (9) DVT prophylaxis Priority: Secondary Status: Acute Hospital course: 63-year-old female with history of poorly controlled diabetes, hypertension, CHF , and KS presented to the emergency department for worsening right great toe infection. Symptoms started one week ago after putting her shoe on she felt a sharp pain. She believes it was a spider bite that caused this, but did not see the spider. She was seen at [facility] and discharged with an antibiotic, which was either clindamycin or cephalexin but she is not sure. She took antibiotics as prescribed but symptoms are worsening and she noted redness from her toe began spreading to her foot with purulent discharge. She denies fevers/ chills, nausea/vomiting. Denies any recent trauma. She was admitted for cellulitis. Lower extremities were cool to touch on exam with weak pulses, ABIs were done and showed bilateral PVD. Vascular surgery was consulted and patient underwent balloon angiogram. She was started on IV Vanc/Zosyn. ID was consulted to evaluate and plan is for PO doxy and cipro on discharge. Patient wound showed improvement. She was discharged with the listed antibiotics for 14 days therapy. Follow-up with compliance of diabetes and antibiotics, tobacco cessation education given. She has reported weight loss over this year, follow-up with this as well. - Time Spent with Patient Total time spent providing and/or coordinating discharge services: - Discharge Medications Prescriptions: Nicotine Patch [Nicoderm] 14 mg TD DAILY #30 patch.td24 Home Medications: Albuterol Sulfate [Ventolin Hfa] 2 puff IH Q4H PRN 07/22/17 [History] Amlodipine Besylate 10 mg PO DAILY 07/22/17 [History] Aspirin 81 mg PO DAILY 07/22/17 [History] Clopidogrel [Plavix] 75 mg PO DAILY 07/22/17 [History] Gabapentin [Neurontin] 300 mg PO TID 07/22/17 [History] Insulin ASPART [Novolog Flexpen] 5 - 10 unit SQ TID 07/22/17 [History] Insulin Glargine,Hum.rec.anlog [Lantus Solostar] 45 unit SQ HS 07/22/17 [History ] Lisinopril [Zestril] 40 mg PO DAILY 07/22/17 [History] Metformin HCl [Glucophage] 1,000 mg PO BID 07/22/17 [History] Metoprolol [Lopressor] 100 mg PO BID 07/22/17 [History] Omeprazole [PriLOSEC] 20 mg TD DAILY 07/22/17 [History] PARoxetine HCl [Paroxetine HCl] 40 mg PO DAILY 07/22/17 [History] Rosuvastatin [Crestor] 20 mg PO HS 07/22/17 [History] Ciprofloxacin [Cipro] 500 mg PO BID #28 tablet 03/09/18 [Rx] Doxycycline 100 mg PO BID #24 capsule 03/09/18 [Rx] Nicotine Patch [Nicoderm] 14 mg TD DAILY #30 patch.td24 03/09/18 [Rx] Allergies/Adverse Reactions: 3 Allergy/AdvReac Type Severity Reaction Status Date / Time codeine AdvReac Nausea Verified 07/22/17 09:36 Sulfa (Sulfonamide AdvReac Rash Verified 07/22/17 09:36 Antibiotics) Date of admission: 03/03/18 16:34 Primary care physician: PCP NONE Consults: 03/03/18 22:31 Consult to Nutrition [CONS] Routine Comment: Consulting Provider: NUTRITION Reason for Dietary Consult: PO Supplementation 03/06/18 07:22 Consult to Infectious Diseases [CONS] Routine Consulting Provider: Infectious Disease Oral Reason for Consult: foot infection Call Completed: No 03/06/18 10:33 Consult to Vascular Surgery [CONS] Routine Consulting Provider: Vascular Surgery Blanca Reason for Consult: PVD Call Completed: Yes Discharging clinician: Jonathon Jackson - Constitutional Vitals: Temp Pulse Resp BP Pulse Ox 98.2 F 72 16 147/80 98 03/09/18 06:18 03/09/18 06:18 03/09/18 06:18 03/09/18 06:18 03/09/18 06:18 General appearance: Present: A&O X 3 Exam: Gen: NAD CVS: RRR Lungs: CTAB Extremities: Right great toe: erythema extending to the distal portion of right foot. Toe is slightly edematous. It is tender to touch. There is dried discharge at an ulcerated lesion on the medial side of the distal portion of the toe. There is also an area of healing ulceration of the nail fold. - Patient Status Disposition: Home, Self-Care Condition: Undetermined Functional capacity at discharge: independent ambulation Overall status at discharge: patient is progressing back to baseline - Discharge Instructions Follow Up With: NONE,PCP [Primary Care Provider] - - Diet and Activity Activity: increase activity as tolerated Diet: diabetic diet
[2018-03-09 10:33] VITALS: BP 161/81
== END 2018-03-09 11:03 | disposition home or self-care (01) | DRG 181 ==
LOC: EMEROOARM 14:29 → 3ANU 16:34 → SUATTDRO 16:34 → 3ANU 17:29
PROVIDERS: ADMIT Internal Medicine; ATTEND Student in an Organized Health Care Education/Training Program